=== PATIENT | male | born 1975 | race African-American/Black ===

== ENCOUNTER 2017-01-01 11:49 | Emergency (ER) | payer MEDICAID, OTHER ==
--- NOTE | 2017-01-01 12:41 | ER Document Report ---
ED Medical Screen (RME) - General Stated Complaint: RIGHT GROIN PAIN Notes: 41 yo male c/o right groin pain x 4-5 days. hx/o inguinal hernia repair in same area. pt admits to increased lifting and activity no difficulty urinating. no n/v TRAVEL OUTSIDE OF THE [place] IN LAST 30 DAYS: No - Related Data Allergies/Adverse Reactions: Bran [From Oat Bran] Allergy (Verified 01/01/17 12:34) dietary supplement [From Oat Bran] Allergy (Verified 01/01/17 12:34) No Known Drug Allergies Allergy (Verified 01/01/17 12:34) mayonaise Allergy (Uncoded 01/01/17 12:34) Past Medical History Musculoskeltal Medical History: Reports Hx Musculoskeletal Trauma Psychiatric Medical History: Reports: Hx Attention Deficit Hyperactivity Disorder, Hx Bipolar Disorder, Hx Schizophrenia Traumatic Medical History: Reports: Hx Fractures Past Surgical History: Reports: Hx Abdominal Surgery - hernia, Hx Inguinal Hernia, Hx Orthopedic Surgery - right ankle - Immunizations Immunizations up to date: Yes Hx Diphtheria, Pertussis, Tetanus Vaccination: Yes Physical Exam - Vital signs Vitals: Temp Pulse Resp BP Pulse Ox 97.8 F 80 18 113/77 99 01/01/17 12:13 01/01/17 12:13 01/01/17 12:13 01/01/17 12:13 01/01/17 12:13 Course - Vital Signs Vital signs: Temp Pulse Resp BP Pulse Ox 97.8 F 80 18 113/77 99 01/01/17 12:13 01/01/17 12:13 01/01/17 12:13 01/01/17 12:13 01/01/17 12:13
[2017-01-01] MEDS ORDERED: ACETAMINOPHEN 325 MG TABLET PO ONE (12:58)
[2017-01-01] MEDS ORDERED: ACETAMINOPHEN 325 MG TABLET ONE (13:12)
[2017-01-01 13:13] LABS: ABSOLUTE EOSINOPHILS # (AUTO) 0.1 10^3/uL (0.0-0.6); ABSOLUTE LYMPHOCYTES (AUTO) 1.8 10^3/uL (0.5-4.7); ABSOLUTE MONOCYTES (AUTO) 0.4 10^3/uL (0.1-1.4); ABSOLUTE NEUT (AUTO) 2.2 10^3/uL (1.7-8.2); EOSINOPHILS % (AUTO) 1.9 % (0-6); HEMATOCRIT 44.9 % (37.9-51.0); HEMOGLOBIN 15.3 g/dL (13.5-17.0); LYMPHOCYTES % (AUTO) 39.9 % (13-45); MEAN CORPUSCULAR HEMOGLOBIN 30.3 pg (27.0-33.4); MEAN CORPUSCULAR VOLUME 89 fl (80-97); MONOCYTES % (AUTO) 8.2 % (3-13); RED BLOOD COUNT 5.04 10^6/uL (4.35-5.55); RED CELL DISTRIBUTION WIDTH 13.3 % (11.5-14.0); WHITE BLOOD COUNT 4.5 10^3/uL (4.0-10.5)
[2017-01-01 13:18] LABS: APPEARANCE,URINE CLEAR; BILIRUBIN,URINE NEGATIVE (NEGATIVE); GLUCOSE, URINE NEGATIVE (NEGATIVE); KETONES,URINE NEGATIVE (NEGATIVE); LEUKOCYTE ESTERASE,URINE NEGATIVE (NEGATIVE); NITRITE,URINE NEGATIVE (NEGATIVE); PROTEIN,URINE NEGATIVE (NEGATIVE); URINE SPECIFIC GRAVITY 1.015; UROBILINOGEN,URINE NEGATIVE mg/dL (<2.0)
[2017-01-01 13:45] LABS: ALANINE AMINOTRANSFERASE 26 U/L (21-72); ALBUMIN 4.4 g/dL (3.5-5.0); ALKALINE PHOSPHATASE 112 U/L (38-126); ANION GAP 6 (5-19); ASPARTATE AMINO TRANSFERASE 20 U/L (17-59); BILIRUBIN,TOTAL 0.8 mg/dL (0.2-1.3); BLOOD UREA NITROGEN 13 mg/dL (7-20); CALCIUM 10.4 mg/dL (8.4-10.2); CARBON DIOXIDE 28 mmol/L (22-30); CHLORIDE 104 mmol/L (98-107); CREATININE RESULT 1.12 mg/dL (0.52-1.25); GLUCOSE 108 mg/dL (75-110); POTASSIUM 5.1 mmol/L (3.6-5.0); SODIUM 137.5 mmol/L (137-145); TOTAL PROTEIN 7.9 g/dL (6.3-8.2)
[2017-01-01] MEDS ORDERED: MORPHINE SULFATE 10 MG/ML INJ IV ONE (16:15)
--- NOTE | 2017-01-01 16:16 | ER Document Report ---
ED GI/ - General Chief Complaint: Groin Pain Stated Complaint: RIGHT GROIN PAIN Mode of Arrival: Ambulatory Information source: Patient Notes: Patient presents complaining of right groin pain for the past 4-5 days. Patient states he noticed swelling yesterday. Patient states that symptoms started after he was lifting up a sleeper sofa. Patient has a previous history of inguinal hernia and is concerned that he has a recurrence today. Patient denies any urinary symptoms, fever, nausea, or vomiting. Patient denies any additional abdominal pain. Patient denies any penile drainage or discharge. TRAVEL OUTSIDE OF THE [place] IN LAST 30 DAYS: No - HPI Patient complains to provider of: Groin pain Onset: Other - 4 days Timing/Duration: Worse Quality of pain: Sharp Pain Level: 4 Location: Pelvis Sexual history: Active Associated symptoms: denies: Dysuria, Erection problem, Fever, Nausea, Urinary hesitancy, Urinary frequency, Urinary retention, Urinary urgency, Vomiting Exacerbated by: Movement Relieved by: Denies Similar symptoms previously: Yes Recently seen / treated by doctor: No - Related Data Allergies/Adverse Reactions: Bran [From Oat Bran] Allergy (Verified 01/01/17 12:34) dietary supplement [From Oat Bran] Allergy (Verified 01/01/17 12:34) No Known Drug Allergies Allergy (Verified 01/01/17 12:34) mayonaise Allergy (Uncoded 01/01/17 12:34) Past Medical History - General Information source: Patient - Social History Smoking Status: Current Every Day Smoker Chew tobacco use (# tins/day): Yes Frequency of alcohol use: Occasional Drug Abuse: None Occupation: none Lives with: Spouse/Significant other Family History: Arthritis, CVA, DM, Hypertension Patient has suicidal ideation: No Patient has homicidal ideation: No Renal/ Medical History: Denies: Hx Peritoneal Dialysis Musculoskeltal Medical History: Reports Hx Musculoskeletal Trauma Psychiatric Medical History: Reports: Hx Schizophrenia Traumatic Medical History: Reports: Hx Fractures Past Surgical History: Reports: Hx Abdominal Surgery - hernia, Hx Inguinal Hernia, Hx Orthopedic Surgery - right ankle - Immunizations Immunizations up to date: Yes Hx Diphtheria, Pertussis, Tetanus Vaccination: Yes Review of Systems - Review of Systems Constitutional: No symptoms reported. denies: Fever, Recent illness EENT: No symptoms reported Cardiovascular: No symptoms reported. denies: Chest pain Respiratory: No symptoms reported. denies: Cough, Short of breath Gastrointestinal: Abdominal pain - Right inguinal pain. denies: Diarrhea, Nausea, Vomiting Genitourinary: No symptoms reported. denies: Dysuria, Flank pain Male Genitourinary: No symptoms reported. denies: Erectile dysfunction, Testicular pain, Penile discharge Musculoskeletal: No symptoms reported. denies: Back pain Skin: No symptoms reported Hematologic/Lymphatic: No symptoms reported Neurological/Psychological: No symptoms reported Physical Exam - Vital signs Vitals: Temp Pulse Resp BP Pulse Ox 97.8 F 80 18 113/77 99 01/01/17 12:13 01/01/17 12:13 01/01/17 12:13 01/01/17 12:13 01/01/17 12:13 - General General appearance: Appears well, Alert In distress: None - HEENT Head: Normocephalic Eyes: Normal Nasal: Normal Mouth/Lips: Normal Mucous membranes: Normal Neck: Normal, Supple. No: Lymphadenopathy - Respiratory Respiratory status: No respiratory distress Chest status: Nontender Breath sounds: Normal. No: Rales, Rhonchi, Stridor, Wheezing Chest palpation: Normal - Cardiovascular Rhythm: Regular Heart sounds: S1 appreciated, S2 appreciated Murmur: No - Abdominal Inspection: Normal Distension: No distension Bowel sounds: Normal Tenderness: Tender - Tenderness to right inguinal fold, no overt mass appreciated Organomegaly: No organomegaly - Genitourinary Tenderness: Nontender Scrotum: Normal - Back Back: Normal, Nontender. No: CVA tenderness - Extremities General upper extremity: Normal inspection, Normal strength General lower extremity: Normal inspection, Normal strength - Neurological Neuro grossly intact: Yes Cognition: Normal Adriana Coma Scale Eye Opening: Spontaneous Adriana Coma Scale Verbal: Oriented Adriana Coma Scale Motor: Obeys Commands Adriana Coma Scale Total: 15 - Psychological Associated symptoms: Normal affect, Normal mood - Skin Skin Temperature: Warm Skin Moisture: Dry Skin Color: Normal Course - Re-evaluation Re-evalutation: 01/01/17 16:16 Dr. Morales to bedside for examination and hernia reduction attempt. Recommends CT imaging to further evaluate area. 01/01/17 18:[address] Fine regarding patient CT report, days he can see a possible clip from patient's previous hernia repair but does not see any current mesh or hernia. Discussed results with patient. Patient encouraged to follow-up with a general surgeon for further evaluation. Discussed worsening signs or symptoms that patient should return immediately for. Patient verbalized understanding and agrees with plan of care. - Vital Signs Vital signs: Temp Pulse Resp BP Pulse Ox 97.4 F 65 18 131/96 H 98 01/01/17 18:53 01/01/17 18:53 01/01/17 12:13 01/01/17 18:53 01/01/17 18:53 - Laboratory Result Diagrams: 01/01/17 12:53 01/01/17 12:53 Laboratory results interpreted by me: 01/01/17 01/01/17 12:53 12:53 Potassium 5.1 H Calcium 10.4 H Urine Ascorbic Acid 40 H 01/01/17 18:35 Labs- Entire Visit 01/01/17 01/01/17 01/01/17 12:53 12:53 12:53 WBC 4.5 RBC 5.04 Hgb 15.3 Hct 44.9 MCV 89 MCH 30.3 MCHC 34.0 RDW 13.3 Plt Count 276 Seg Neutrophils % 49.0 Lymphocytes % 39.9 Monocytes % 8.2 Eosinophils % 1.9 Basophils % 1.0 Absolute Neutrophils 2.2 Absolute Lymphocytes 1.8 Absolute Monocytes 0.4 Absolute Eosinophils 0.1 Absolute Basophils 0.0 Sodium 137.5 Potassium 5.1 H Chloride 104 Carbon Dioxide 28 Anion Gap 6 BUN 13 Creatinine 1.12 Est GFR ( Amer) > 60 Est GFR (Non-Af Amer) > 60 Glucose 108 Calcium 10.4 H Total Bilirubin 0.8 Direct Bilirubin 0.0 AST 20 ALT 26 Alkaline Phosphatase 112 Total Protein 7.9 Albumin 4.4 Urine Color YELLOW Urine Appearance CLEAR Urine pH 5.0 Ur Specific [place] 1.015 Urine Protein NEGATIVE Urine Glucose (UA) NEGATIVE Urine Ketones NEGATIVE Urine Blood NEGATIVE Urine Nitrite NEGATIVE Urine Bilirubin NEGATIVE Urine Urobilinogen NEGATIVE Ur Leukocyte Esterase NEGATIVE Urine WBC (Auto) 0 Urine RBC (Auto) 0 Urine Ascorbic Acid 40 H 01/01/17 18:36 - Diagnostic Test Radiology reviewed: Reports reviewed Discharge - Discharge Clinical Impression: Right inguinal pain Condition: Stable Disposition: HOME, SELF-CARE Instructions: Abdominal Pain ([facility]), Anti-Inflammatory Medication ([facility]) Additional Instructions: Return immediately for any new or worsening symptoms Followup with your primary care provider, call tomorrow to make a followup appointment Follow up with a general surgeon for further evaluation of right inguinal pain. You do not currently have any evidence of a hernia at this time Prescriptions: Naproxen [Naprosyn 250 Nmg Tablet] 1 tab PO BID #14 tablet Referrals: GAMAL ESCOBAR MD [Primary Care Provider] - [facility] as [facility] - Follow up in 3-5 days
[2017-01-01 18:56] VITALS: BP 131/96
== END 2017-01-01 18:55 | disposition home or self-care (01) ==
LOC: ER 11:49
DX: R10.30 Lower abdominal pain, unspecified (principal); Z91.018 Allergy to other foods; Z87.19 Personal history of other diseases of the digestive system; Z98.890 Other specified postprocedural states
CPT/HCPCS: 99284; 96374; 36415; 85025; 80053; 81001; 74177; J3490; J2270

== ENCOUNTER 2017-02-14 08:48 | Emergency (ER) | payer MEDICAID ==
[2017-02-14] MEDS ORDERED: OXYCODONE-ACETAMINOPHEN 5-325 MG TABLET PO ONE (09:22)
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
[2017-02-14 10:32] VITALS: BP 132/83
== END 2017-02-14 10:30 | disposition home or self-care (01) ==
LOC: ER 08:48
DX: S02.651A Fracture of angle of right mandible, initial encounter for closed fracture (principal); S02.602A Fracture of unspecified part of body of left mandible, initial encounter for closed fracture; Y09 Assault by unspecified means; Y93.01 Activity, walking, marching and hiking; F17.210 Nicotine dependence, cigarettes, uncomplicated
CPT/HCPCS: 70486; 99283

== ENCOUNTER 2017-06-15 04:27 | Emergency (ER) | payer MEDICAID ==
[2017-06-15 05:00] LABS: APPEARANCE,URINE CLEAR; BILIRUBIN,URINE NEGATIVE (NEGATIVE); GLUCOSE, URINE NEGATIVE (NEGATIVE); KETONES,URINE NEGATIVE (NEGATIVE); LEUKOCYTE ESTERASE,URINE NEGATIVE (NEGATIVE); NITRITE,URINE NEGATIVE (NEGATIVE); PROTEIN,URINE NEGATIVE (NEGATIVE); URINE SPECIFIC GRAVITY 1.001; UROBILINOGEN,URINE NEGATIVE mg/dL (<2.0)
[2017-06-15 05:05] LABS: ABSOLUTE LYMPHOCYTES (AUTO) 1.6 10^3/uL (0.5-4.7); ABSOLUTE MONOCYTES (AUTO) 0.3 10^3/uL (0.1-1.4); ABSOLUTE NEUT (AUTO) 4.6 10^3/uL (1.7-8.2); BASOPHILS % (AUTO) 0.4 % (0-2); EOSINOPHILS % (AUTO) 0.4 % (0-6); HEMATOCRIT 41.8 % (37.9-51.0); HEMOGLOBIN 14.4 g/dL (13.5-17.0); HGB HCT DIFFERENCE 1.4; MEAN CORPUSCULAR HEMOGLOBIN 30.7 pg (27.0-33.4); MEAN CORPUSCULAR HGB CONC 34.5 g/dL (32.0-36.0); MEAN CORPUSCULAR VOLUME 89 fl (80-97); MONOCYTES % (AUTO) 4.6 % (3-13); RED BLOOD COUNT 4.69 10^6/uL (4.35-5.55); RED CELL DISTRIBUTION WIDTH 13.3 % (11.5-14.0); SEGMENTED NEUTROPHILS % (AUTO) 69.6 % (42-78); WHITE BLOOD COUNT 6.6 10^3/uL (4.0-10.5)
[2017-06-15 05:11] LABS: ALANINE AMINOTRANSFERASE 25 U/L (21-72); ALBUMIN 4.8 g/dL (3.5-5.0); ALCOHOL 139 mg/dL (NONE DETECTED); ALKALINE PHOSPHATASE 104 U/L (38-126); ANION GAP 15 (5-19); ASPARTATE AMINO TRANSFERASE 25 U/L (17-59); BILIRUBIN,DIRECT 0.4 mg/dL (0.0-0.4); BILIRUBIN,TOTAL 0.5 mg/dL (0.2-1.3); BLOOD UREA NITROGEN 12 mg/dL (7-20); CALCIUM 10.4 mg/dL (8.4-10.2); CARBON DIOXIDE 22 mmol/L (22-30); CHLORIDE 109 mmol/L (98-107); CREATININE RESULT 1.15 mg/dL (0.52-1.25); GLUCOSE 102 mg/dL (75-110); POTASSIUM 4.2 mmol/L (3.6-5.0); SODIUM 146.1 mmol/L (137-145); TOTAL PROTEIN 7.9 g/dL (6.3-8.2)
--- NOTE | 2017-06-15 05:12 | ER Document Report ---
ED Medical Screen (RME) - General Chief Complaint: Psych Problem Stated Complaint: PSYCH PROBLEM Time Seen by Provider: 06/15/17 05:11 Notes: 42 year old, comes by EMS, chief complaint of suicidal thoughts. Also smoked something from his friend and thinks there may have been cocaine in it. No current complaints. Has a history of anxiety and bipolar disorder. TRAVEL OUTSIDE OF THE [place] IN LAST 30 DAYS: No - Related Data Allergies/Adverse Reactions: Bran [From Oat Bran] Allergy (Verified 02/14/17 08:50) dietary supplement [From Oat Bran] Allergy (Verified 02/14/17 08:50) No Known Drug Allergies Allergy (Verified 02/14/17 08:50) mayonaise Allergy (Uncoded 02/14/17 08:50) Past Medical History Renal/ Medical History: Denies: Hx Peritoneal Dialysis Musculoskeltal Medical History: Reports Hx Musculoskeletal Trauma Psychiatric Medical History: Reports: Hx Attention Deficit Hyperactivity Disorder, Hx Bipolar Disorder, Hx Schizophrenia Traumatic Medical History: Reports: Hx Fractures Past Surgical History: Reports: Hx Abdominal Surgery - hernia, Hx Inguinal Hernia, Hx Orthopedic Surgery - right ankle - Immunizations Immunizations up to date: Yes Hx Diphtheria, Pertussis, Tetanus Vaccination: Yes Physical Exam - Cardiovascular Rhythm: Regular. No: Tachycardia Heart sounds: Normal auscultation, S1 appreciated, S2 appreciated - Psychological Associated symptoms: Normal affect, Normal mood Course - Re-evaluation Re-evalutation: patient calm, smiling, cooperative. No tachycardia. Well appearing. Pending workup - Laboratory Result Diagrams: 06/15/17 04:45 06/15/17 04:45
[2017-06-15 05:18] LABS: URINE BARBITURATES SCREEN NEGATIVE; URINE METHADONE SCREEN NEGATIVE; URINE OPIATES LOW NEGATIVE; URINE PHENCYCLIDINE SCREEN NEGATIVE
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
[2017-06-15] MEDS ORDERED: ZIPRASIDONE MESYLATE INJ/PF 20 MG SDV IM ONE (08:48)
[2017-06-15] MEDS ORDERED: LORAZEPAM INJ 2 MG/1 ML VIAL IM ONE (08:49)
--- NOTE | 2017-06-15 09:58 | ER Document Report ---
ED Psych Disorder / Suicide - General Information source: Patient, Parent - mother will be contacted, Relative - fiance will be contacted, [facility] Records TRAVEL OUTSIDE OF THE [place] IN LAST 30 DAYS: No - HPI Patient complains to provider of: Bizarre behavior, Suicidal ideation - pt Onset: Just prior to arrival Suicide Risk Factors: Male, Schizophrenia - Schizoaffective Bipolar Type; "severe learning disabilities", Substance abuse - alcohol and drugs Normal mood: No Associated symptoms: Anxious, Labile, Manic <DAYANA DELACRUZ - Last Filed: 06/16/17 11:14> <YENNIFER ADORNO - Last Filed: 06/16/17 11:37> - General Chief Complaint: Psych Problem Stated Complaint: PSYCH PROBLEM Time Seen by Provider: 06/15/17 05:11 - HPI Notes: Patient is a 42 year old male who presented via EMS with c/o suicidal ideations , anxiety, etc. Patient during discussion states multiple times he is good, and wants to go home. Patient denies any SI.HI. Patient states his called the ambulance because he was anxious. Patient denies any concerns or needs at this time. Note, during patient's evaluation with MD, he was tearful and stating he was depressed, most mornings struggles to get out of bed, etc. Dayana Nicholson states the patient was hanging out with people in the neighborhood, and he returned home around midnight stating he called 911 because he wanted to commit suicide. She states the Schizophrenia is common with the family, mother, etc. Lyn states the patient has been noncompliant with medications for 10 months, and is emotionally labile throughout the day/ daily. She states his ups and downs can become violent towards people and property. Lyn states his family, due to their mental health needs, are against her and them being together. She states he struggles over listening to his family, and staying with her. She states when he was on probation, his Officer encouraged her to petition for guardianship; however, she chose not to. She states he managed his schizophrenia well for about years, and has spent a total of 18 [place] correction [place] various [facility]. Hansramos states while he was on probation, he did well, but once that level of oversight discontinued he slowly discontinued his medication. She reports most recent medications prescribed were Zyprexa, Zoloft, and [place]. Lyn reports the patient does talk about suicide. Patient is A&O. Mood is manic/labile. Patient has denied and endorsed at various times suicidal ideations. Patient denies A/V H; paranoia was noted. Thought processes were tangential. Conversational speech was labile for prosody. Intellectual abilities were reported within disability range (per fiance). Attention and focus were poor. Insight, judgment, and impulse control were poor. Schizoaffective Disorder, Bipolar Type, per history Unspecified Cocaine Use Disorder Unspecified Alcohol Use Disorder Patient is recommended for IVC and is considered a danger to self and or others. Patient presents labile, with inconsistent stories in regards to suicidal ideations, etc. Patient is reportedly noncompliant with his medications, which per collateral information were once efficacious in managing his symptoms. I consulted with Dr. Jamison in regards to the care and management of this patient. 06/16/2017 Conducted check in with patient who is a 42 year old male under IVC at [facility]. Patient today is accompanied by his lyn, who is bedside. Patient states he is ready to go and "learned my lesson." Patient states the lesson learned was not to drink and do drugs. Patient states the medications provided helped him sleep. Patient states he would be willing to follow up outpatient. Patient denies suicidal/homicidal ideations. Dayana Nicholson, is bedside and reports she is comfortable with patient returning home. She states the patient was previously followed by A and will contact now to identify new provider. Lyn later states his information will be transferred and contacted by new provider within 1 week. Lyn states she is in agreement to monitor medications and provide doses as they are due. She states she does not think this episode would have occurred if the patient had not been drinking alcohol. Patient is A&O. Mood is anxious with congruent affect. Patient denies suicidal/ homicidal ideations. Patient denies A/V H; delusions not noted. Thought processes were guarded by organized. Conversational speech was pressured (note hansance states this is normal for patient). Intellectual abilities were reported to be in the learning disability range and therefor were not estimated. Attention and focus were poor. Insight, judgment, and impulse control were poor to fair. Schizoaffective Disorder, Bipolar Type, per history Unspecified Cocaine Use Disorder Unspecified Alcohol Use Disorder Patient is psychiatrically cleared for discharge. Patient is recommended for discharge to his fiance to follow up with a provider of their choice. Patient is encouraged to follow up with [facility] to engage in substance abuse assessment. Patient is recommended to discontinue use of drugs and alcohol and take his medications only as prescribed. Patient's fiance has agreed to manage medications in the home environment, and oversee patient taking the meds as well as following up. Patient denies suicidal/homicidal ideations and therefor no longer meets criteria for IVC per the [id number]. Fiance and patient are both in agreement with plan of care. I consulted with Dr. Jamison in regards to the care and management of this patient. (DAYANA DELACRUZ) - Related Data Allergies/Adverse Reactions: Bran [From Oat Bran] Allergy (Verified 02/14/17 08:50) dietary supplement [From Oat Bran] Allergy (Verified 02/14/17 08:50) No Known Drug Allergies Allergy (Verified 02/14/17 08:50) mayonaise Allergy (Uncoded 02/14/17 08:50) Past Medical History - General Information source: Patient, Relative - fiance - Social History Smoking Status: Current Every Day Smoker Cigarette use (# per day): Yes Chew tobacco use (# tins/day): No Smoking Education Provided: Yes Family History: Arthritis, CVA, DM, Hypertension Patient has suicidal ideation: No Patient has homicidal ideation: No Renal/ Medical History: Denies: Hx Peritoneal Dialysis Musculoskeltal Medical History: Reports Hx Musculoskeletal Trauma Psychiatric Medical History: Reports: Hx Attention Deficit Hyperactivity Disorder, Hx Bipolar Disorder, Hx Schizophrenia Traumatic Medical History: Reports: Hx Fractures Past Surgical History: Reports: Hx Abdominal Surgery - hernia, Hx Inguinal Hernia, Hx Orthopedic Surgery - right ankle - Immunizations Immunizations up to date: Yes Hx Diphtheria, Pertussis, Tetanus Vaccination: Yes <DAYANA DELACRUZ - Last Filed: 06/16/17 11:14> - Vital signs Vitals: Temp Pulse Resp BP Pulse Ox 98.4 F 85 17 108/86 H 97 06/15/17 04:27 06/15/17 04:27 06/15/17 04:27 06/15/17 04:27 06/15/17 04:27 Course - Laboratory Result Diagrams: 06/15/17 04:45 06/15/17 04:45 <DAYANA DELACRUZ - Last Filed: 06/16/17 11:14> - Laboratory Result Diagrams: 06/15/17 04:45 06/15/17 04:45 <YENNIFER ADORNO - Last Filed: 06/16/17 11:37> - Vital Signs Vital signs: Temp Pulse Resp BP Pulse Ox 98.5 F 58 L 18 112/80 100 06/16/17 07:27 06/16/17 07:27 06/16/17 07:27 06/16/17 07:27 06/16/17 07:27 - Laboratory Laboratory results interpreted by me: 06/15/17 04:45 Sodium 146.1 H Chloride 109 H Calcium 10.4 H Salicylates < 1.0 L Acetaminophen < 10 L Discharge <DYAANA DELACRUZ - Last Filed: 06/16/17 11:14> <YENNIFER ADORNO - Last Filed: 06/16/17 11:37> - Discharge Clinical Impression: Suicidal ideation, Cocaine abuse, Schizophrenia in partial remission with history of multiple episodes Condition: Stable Disposition: HOME, SELF-CARE Additional Instructions: Schizophrenia Schizophrenia is a chemical disorder that affects how the brain functions. The exact cause is unknown, but it tends to run in families. It is NOT caused by emotional trauma. Schizophrenia causes disordered thinking, including unusual beliefs and inability to "process" happenings around the patient. Patients with schizophrenia benefit greatly from medicine. These medicines are called antipsychotics. Never stop the medicine without the doctor 's approval. Counselling may help the patient deal with his disease. Schizophrenics require a very ordered environment. Stresses and sudden changes may bring out symptoms. Drugs and alcohol abuse may become problems. Contact the counsellor or crisis line if there are thoughts of suicide or of harming others, or if you become aware of unusual thoughts or beliefs Please take your medications as prescribed. Please do not use drugs or alcohol. Please follow up with a provider of your choice. Your fiance states [facility] will transfer your chart and you will be contacted with an appointment. Prescriptions: Benztropine Mesylate [Cogentin 1 mg Tablet] 1 mg PO DAILY #7 tablet Divalproex Sodium [Depakote] 500 mg PO BID #14 tablet.dr Matthews [Zyprexa 5 mg Tablet] 5 mg PO Q12 #14 tablet Referrals: [facility] [Provider Group] - Follow up in 3-5 days
[2017-06-15] MEDS ORDERED: NICOTINE 21 MG/24 HR PATCH.TD24 TD ONE (15:25)
[2017-06-15] MEDS: DIVALPROEX SODIUM 250 MG TAB.SR.24H PO SCH (19:36)
[2017-06-15] MEDS ORDERED: BENZTROPINE MESYLATE 1 MG TABLET PO ONE (20:00)
[2017-06-15] MEDS ORDERED: OLANZAPINE 5 MG TABLET PO ONE (20:00)
--- NOTE | 2017-06-15 21:55 | EKG REPORT ---
SEVERITY:- NORMAL ECG - SINUS RHYTHM : Confirmed by: Toshia Ball 15-Jun-2017 21:55:03
[2017-06-16] MEDS: DIVALPROEX SODIUM 250 MG TAB.SR.24H PO SCH (09:24)
--- NOTE | 2017-06-16 09:46 | ER Document Report ---
Doctor's Note Notes: 06/16/17 09:46 Patient evaluated this morning. Patient is resting comfortably in the bed with his significant other sitting by his side. Patient denies any current problems or concerns.
[2017-06-16] MEDS ORDERED: OLANZAPINE 5 MG TABLET PO ONE (11:34)
[2017-06-16] MEDS ORDERED: BENZTROPINE MESYLATE 1 MG TABLET PO ONE (11:35)
[2017-06-16 11:46] VITALS: BP 117/81
[2017-06-16] MEDS ORDERED: OLANZAPINE 5 MG TABLET PO SCH (18:00)
[2017-06-17] MEDS ORDERED: BENZTROPINE MESYLATE 1 MG TABLET PO SCH (10:00)
== END 2017-06-16 11:55 | disposition home or self-care (01) ==
LOC: ER 04:27
DX: R45.851 Suicidal ideations (principal); F14.10 Cocaine abuse, uncomplicated; F32.9 Major depressive disorder, single episode, unspecified; F20.9 Schizophrenia, unspecified; F17.200 Nicotine dependence, unspecified, uncomplicated
CPT/HCPCS: 93005; 99285; 36415; 80307 ×4; 85025; 80053; 81001; 93010; J3490 ×7; J2060; J3486

== ENCOUNTER 2017-06-24 12:20 | Emergency (ER) | payer MEDICAID ==
[2017-06-24] MEDS ORDERED: OXYCODONE-ACETAMINOPHEN 5-325 MG TABLET PO ONE (13:17)
[2017-06-24] MEDS ORDERED: PENICILLIN V POTASSIUM 500 MG TABLET PO ONE (13:17)
--- NOTE | 2017-06-24 13:20 | ER Document Report ---
HPI - HPI Patient complains to provider of: Dental pain Onset: Other - 1 month, Onset/Duration: Worse Quality of pain: Achy Pain Level: 4 Context: Patient presents with right lower jaw dental pain for the past month that worsened over the past 3 days. Patient denies any fever. Patient does report facial swelling that develops and improves each day but then returns. Associated Symptoms: Other - Dental pain Exacerbated by: Denies Relieved by: Denies Similar symptoms previously: Yes Recently seen / treated by doctor: Yes - ROS ROS below otherwise negative: Yes Systems Reviewed and Negative: Yes All other systems reviewed and negative - CONSTITUTIONAL Constitutional: DENIES: Fever, Chills - EENT EENT: REPORTS: Ear Pain Notes: Dental pain - CARDIOVASCULAR Cardiovascular: DENIES: Chest pain - RESPIRATORY Respiratory: DENIES: Coughing - GASTROINTESTINAL Gastrointestinal: DENIES: Nausea, Patient vomiting - REPRODUCTIVE Reproductive: DENIES: : - MUSCULOSKELETAL Musculoskeletal: DENIES: Back Pain, Neck Pain - DERM Skin Color: Normal Skin Problems: None Past Medical History - General Information source: Patient - Social History Smoking Status: Current Every Day Smoker Chew tobacco use (# tins/day): No Frequency of alcohol use: None Drug Abuse: None Occupation: none Lives with: Spouse/Significant other Family History: Arthritis, CVA, DM, Hypertension Patient has suicidal ideation: No Patient has homicidal ideation: No Renal/ Medical History: Denies: Hx Peritoneal Dialysis Musculoskeltal Medical History: Reports Hx Musculoskeletal Trauma Psychiatric Medical History: Reports: Hx Attention Deficit Hyperactivity Disorder, Hx Bipolar Disorder, Hx Depression, Hx Schizophrenia Traumatic Medical History: Reports: Hx Fractures Past Surgical History: Reports: Hx Abdominal Surgery - hernia, Hx Inguinal Hernia, Hx Orthopedic Surgery - right ankle - Immunizations Immunizations up to date: Yes Hx Diphtheria, Pertussis, Tetanus Vaccination: Yes Vertical Provider Document - CONSTITUTIONAL Agree With Documented VS: Yes Exam Limitations: No Limitations General Appearance: WD/WN, No Apparent Distress - INFECTION CONTROL TRAVEL OUTSIDE OF THE [place] IN LAST 30 DAYS: No - HEENT HEENT: Atraumatic, Normocephalic. negative: Pharyngeal Exudate, Pharyngeal Tenderness, Pharyngeal Erythema, Tympanic Membrane Red, Tympanic Membrane Bulging Mouth Diagram: 1 - Dental decay, tenderness, no gingival abscess, no trismus, no sublingual or submental swelling - NECK Neck: Lymphadenopathy-Right - RESPIRATORY Respiratory: Breath Sounds Normal, No Respiratory Distress O2 Sat by Pulse Oximetry: 97 - CARDIOVASCULAR Cardiovascular: Regular Rate, Regular Rhythm, No Murmur - MUSCULOSKELETAL/EXTREMETIES Musculoskeletal/Extremeties: MAEW - NEURO Level of Consciousness: Awake, Alert, Appropriate Motor/Sensory: No Motor Deficit - DERM Integumentary: Warm, Dry, No Rash Course - Re-evaluation Re-evalutation: 06/24/17 13:19 The patient has been informed that they may have pre-hypertension or hypertension based on a blood pressure reading in the emergency department. I recommend that patient call the primary care provider listed on their discharge instructions or a physician of their choice by this week to arrange follow-up for further evaluation of possible pre-hypertension or hypertension. - Vital Signs Vital signs: Temp Pulse Resp BP Pulse Ox 98.5 F 78 16 144/84 H 97 06/24/17 12:32 06/24/17 12:32 06/24/17 12:32 06/24/17 12:32 06/24/17 12:32 Discharge - Discharge Clinical Impression: Elevated blood pressure reading, Pain, dental Condition: Stable Disposition: HOME, SELF-CARE Instructions: Penicillin V K ([facility]), Toothache ([facility]), Ultraviolet Precaution ( [facility]) Additional Instructions: Return immediately for any new or worsening symptoms Followup with your primary care provider, call tomorrow to make a followup appointment Keep your appointment with your dentist as planned Prescriptions: Penicillin V Potassium [Penicillin Vk 500 mg Tablet] 500 mg PO BID #20 tablet Tramadol HCl [Ultram 50 mg Tablet] 50 mg PO ASDIR PRN #15 tablet PRN Reason: Referrals: [facility] [Provider Group] - Follow up as needed
[2017-06-24 13:43] VITALS: BP 136/84
== END 2017-06-24 13:41 | disposition home or self-care (01) ==
LOC: ER 12:20
DX: K08.9 Disorder of teeth and supporting structures, unspecified (principal); R03.0 Elevated blood-pressure reading, without diagnosis of hypertension; F17.200 Nicotine dependence, unspecified, uncomplicated
CPT/HCPCS: 99282; J3490

== ENCOUNTER 2017-07-29 11:23 | Emergency (ER) | payer MEDICAID ==
[2017-07-29] MEDS ORDERED: HYDROCODONE/ACETAMINOPHEN 5-325 MG TABLET PO ONE (14:37)
--- NOTE | 2017-07-29 14:40 | ER Document Report ---
ED General - General Chief Complaint: Abdominal Pain Stated Complaint: STOMACH PAIN Time Seen by Provider: 07/29/17 14:37 Notes: 42-year-old male presents emergency department complaining of a two-week history of epigastric abdominal pain associated with a knot that is tender to palpation but reduces when pushed on. Denies any difficulty with bowel movements but states he gets worse when he strains to poop. 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 States the pain radiates lower in his abdomen when he tries to bear down otherwise does not radiate. Denies any nausea, vomiting, diarrhea , fevers or chills. TRAVEL OUTSIDE OF THE [place] IN LAST 30 DAYS: No - HPI Severity: Moderate - Related Data Allergies/Adverse Reactions: Bran [From Oat Bran] Allergy (Verified 06/24/17 12:33) dietary supplement [From Oat Bran] Allergy (Verified 06/24/17 12:33) No Known Drug Allergies Allergy (Verified 07/29/17 11:35) mayonaise Allergy (Uncoded 06/24/17 12:33) Past Medical History - General Information source: Patient - Social History Smoking Status: Current Every Day Smoker Chew tobacco use (# tins/day): No Smoking Education Provided: Yes - 4 mins Frequency of alcohol use: Occasional Drug Abuse: Marijuana Lives with: Spouse/Significant other Family History: Arthritis, CVA, DM, Hypertension Renal/ Medical History: Denies: Hx Peritoneal Dialysis Musculoskeltal Medical History: Reports Hx Musculoskeletal Trauma Psychiatric Medical History: Reports: Hx Attention Deficit Hyperactivity Disorder, Hx Bipolar Disorder, Hx Depression, Hx Schizophrenia Traumatic Medical History: Reports: Hx Fractures Past Surgical History: Reports: Hx Abdominal Surgery - hernia, Hx Inguinal Hernia, Hx Orthopedic Surgery - right ankle - Immunizations Immunizations up to date: Yes Hx Diphtheria, Pertussis, Tetanus Vaccination: Yes Review of Systems - Review of Systems Constitutional: No symptoms reported Gastrointestinal: See HPI, Abdominal pain. denies: Diarrhea, Nausea, Constipation Genitourinary: No symptoms reported -: Yes All other systems reviewed and negative Physical Exam - Vital signs Vitals: Temp Pulse Resp BP Pulse Ox 98.2 F 75 16 122/80 100 07/29/17 11:34 07/29/17 11:34 07/29/17 11:34 07/29/17 11:34 07/29/17 11:34 Interpretation: Normal - General General appearance: Alert, Anxious - Mildly uncomfortable. - HEENT Head: Normocephalic, Atraumatic Eyes: Normal Pupils: PERRL - Respiratory Respiratory status: No respiratory distress. No: Cyanosis, Retractions - Cardiovascular Normal capillary refill: Yes - Abdominal Inspection: Normal Notes: Hernia approximately 3 cm above the umbilicus, in the midline, easily reducible , approximately 2 fingerbreadths wide, no evidence of incarceration or strangulation. Abdomen otherwise nontender to palpation. Normal bowel sounds. - Neurological Neuro grossly intact: Yes Cognition: Normal Orientation: AAOx4 - Skin Skin Temperature: Warm Skin Moisture: Dry Skin Color: Normal Course - Re-evaluation Re-evalutation: 07/29/17 16:39 Acute abdominal series does not show any signs of obstruction, physical examination does not suggest incarceration or strangulation, discussed with patient that I do expect his hernia to continue to be painful however we have given him an abdominal binder to relieve some of the pressure on his stomach and to help to keep the hernia reduced, he was counseled regarding return precautions including return should his pain worsen, develop uncontrollable vomiting, be unable to reduce the hernia or any new or concerning symptoms. Patient is agreeable to this plan and will follow with surgery as an outpatient. Recommended use stool softeners and avoid heavy lifting. - Vital Signs Vital signs: Temp Pulse Resp BP Pulse Ox 98.2 F 75 16 122/80 100 07/29/17 11:34 07/29/17 11:34 07/29/17 11:34 07/29/17 11:34 07/29/17 11:34 Discharge - Discharge Clinical Impression: Tobacco abuse, Tobacco abuse counseling Abdominal hernia without obstruction and without gangrene Qualifiers: Hernia type: ventral Qualified Code(s): K43.9 - Ventral hernia without obstruction or gangrene Condition: Stable Disposition: HOME, SELF-CARE Additional Instructions: Hernia You have a hernia. A hernia forms at a weak spot in the abdominal wall. Bowel slips out of the abdominal cavity into the weak spot. Hernias tend to occur in the groin (especially in males), the fold of the thigh, the naval, or at a surgical scar. Surgical repair of the defect is usually necessary. The problem tends to get worse. It's important that you follow up as recommended. For now, you should avoid straining, heavy lifting, and vigorous exercise. Complications occur if the hernia becomes tightly stuck. You should come back immediately if the area becomes increasingly painful, swollen, or discolored, or if you develop abdominal pain and vomiting. Please dissolve 1 scoop of MiraLAX in a glass of water once a day to treat constipation. You may increase to twice a day if needed to create soft bowel movements and you may decrease to every other day if you develop diarrhea. Forms: Smoking Cessation Education Referrals: [facility] [Provider Group] - Follow up as needed
--- NOTE | 2017-07-29 16:21 | RADIOLOGY REPORT (SQ) ---
EXAM DESCRIPTION: ABDOMEN 2 VIEWS COMPLETED DATE/TIME: 07/29/2017 4:10 pm REASON FOR STUDY: abd pain, hernia, r/o obstruction COMPARISON: None. NUMBER OF VIEWS: Two views. TECHNIQUE: Supine and erect/decubitus radiographic images of the abdomen acquired. LIMITATIONS: None. FINDINGS: FREE AIR: None. No abnormal gas collections. LUNG BASES: Clear. BOWEL GAS PATTERN: Nonobstructive pattern. No dilated loops or air fluid levels. CALCIFICATIONS: No suspicious calcifications. SOFT TISSUES: No gross mass or suggestion of organomegaly. HARDWARE: None in the abdomen. BONES: No acute fracture. No worrisome bone lesions. OTHER: No other significant finding. IMPRESSION: NO RADIOGRAPHIC EVIDENCE FOR ACUTE ABDOMINAL DISEASE. TECHNICAL DOCUMENTATION: JOB ID: [id number] [employer]- All Rights Reserved
[2017-07-29 16:46] VITALS: BP 148/92
== END 2017-07-29 16:46 | disposition home or self-care (01) ==
LOC: ER 11:23
DX: K43.9 Ventral hernia without obstruction or gangrene (principal); R10.9 Unspecified abdominal pain; R10.13 Epigastric pain; F17.200 Nicotine dependence, unspecified, uncomplicated
CPT/HCPCS: 74020; 99284; 99406

== ENCOUNTER 2017-09-03 14:37 | Day surgery (SDC) | payer MEDICAID ==
[~2017-09-03 14:37] MED LIST: BUPIVACAINE HCL 0.25 % INJ/PF (2.5 MG/1 ML) 30 ML VIAL ONE; BUPIVACAINE INJ/PF LIPOSOME/PF 266 MG/20 ML SDV ONE; CEFAZOLIN 1 GM/D5W RTU 1 GM/50 ML RTUPB IV PRN; DEXTROSE 5%-LACTATED RINGERS 1,000 ML IV PRN; SUCCINYLCHOLINE CHLORIDE INJ 200 MG/10 ML VIAL ONE
[2017-09-03] MEDS ORDERED: DEXAMETHASONE SOD PHOSPHATE INJ 4 MG/1 ML VIAL ONE (15:02)
[2017-09-03] MEDS ORDERED: FENTANYL CITRATE INJ/PF 100 MCG/2 ML AMPUL ONE (15:02)
[2017-09-03] MEDS ORDERED: MIDAZOLAM 2 MG/2 ML INJ ONE (15:02)
[2017-09-03] MEDS ORDERED: ONDANSETRON HCL INJ/PF 4 MG/2 ML SDV ONE (15:03)
[2017-09-03] MEDS ORDERED: MORPHINE SULFATE 10 MG/ML INJ ONE (15:03)
[2017-09-03] MEDS ORDERED: IBUPROFEN INJ 800 MG/8 ML VIAL IV ONE (15:03)
[2017-09-03] MEDS ORDERED: PROPOFOL INJ 200 MG/20 ML VIAL IV ONE (15:03)
[2017-09-03 15:12] LABS: HEMATOCRIT 42.3 % (37.9-51.0); HEMOGLOBIN 14.5 g/dL (13.5-17.0); HGB HCT DIFFERENCE 1.2; MEAN CORPUSCULAR HEMOGLOBIN 30.2 pg (27.0-33.4); MEAN CORPUSCULAR HGB CONC 34.3 g/dL (32.0-36.0); MEAN CORPUSCULAR VOLUME 88 fl (80-97); RED BLOOD COUNT 4.81 10^6/uL (4.35-5.55); RED CELL DISTRIBUTION WIDTH 13.6 % (11.5-14.0); WHITE BLOOD COUNT 5.1 10^3/uL (4.0-10.5)
[2017-09-03] MEDS ORDERED: PROMETHAZINE HCL INJ 25 MG/1 ML VIAL IV PRN ×2 (15:36)
[2017-09-03] MEDS ORDERED: DIPHENHYDRAMINE HCL 50 MG/ML VIAL IV PRN (15:36)
[2017-09-03] MEDS ORDERED: MEPERIDINE HCL/PF INJ 25 MG/1 ML DISP.SYRIN IV PRN (15:36)
[2017-09-03] MEDS ORDERED: MORPHINE SULFATE 10 MG/ML INJ IV PRN (15:36)
[2017-09-03] MEDS ORDERED: OXYCODONE-ACETAMINOPHEN 5-325 MG TABLET PO PRN ×3 (15:36→16:20)
[2017-09-03] MEDS ORDERED: FENTANYL CITRATE INJ/PF 100 MCG/2 ML AMPUL IV PRN ×3 (15:36)
--- NOTE | 2017-09-03 16:19 | Operative Report ---
Operative Report DATE OF SURGERY: 09/03/17 PREOPERATIVE DIAGNOSIS: Supraumbilical ventral hernia POSTOPERATIVE DIAGNOSIS: Same OPERATION: Ventral wall repair using 4.6 cm Covidien mesh retro-rectus position SURGEON: EMANUEL BROWN 1ST HOTBED OPERATOR: CHRISTINE ROSENBAUM ANESTHESIA: GA TISSUE REMOVED OR ALTERED: None COMPLICATIONS: None ESTIMATED BLOOD LOSS: Scant INTRAOPERATIVE FINDINGS: See below PROCEDURE: Patient was taken to the preop holding her to the main operating room where general anesthesia was induced. Abdomen was exposed, hair clipped, and the abdominal wall anteriorly was prepped and draped sterile fashion. Surgical plan surgical timeout were conducted The skin was anesthetized above the umbilicus percent Marcaine, 20 cc. The stump preoperative thinning, and physical examination, need a supraumbilical incision, vertically oriented, approximately 4-1/2-5 cm in length of the umbilicus. Cutaneous tissue was divided, and the small was encountered with prolapsing retroperitoneal fat through the fascial defect was approximately 1/2 cm in diameter. We opened up the fascial defect of approximately 2-1/2 cm in diameter and inspected the fascia the retroperitoneal side by mechanically reducing the peritoneal fat off of the rectus sheath. At this point we decided to bring onto the field a Covidien circular 4.6 cm polypropylene mesh. It was deployed into the retrorectus position, and its leaves at the 2, 4,8 and 10:00 positions were used X the mesh to the anterior abdominal wall through and through 0 PDS sutures through the intact fascia to the left and right of midline. This now permitted the attic to lay in the retro-rectus position. Now closed the anterior fascia over the mesh with 2 interrupted [id number] 0 PDS sutures. The remainder the wound was closed with 3-0 Vicryl benzoin and Steri-Strips. Exparel placed in the subcutaneous perimeter of the wound. Pt.Tolerated the procedure well, extubated, taken to recovery room stable condition.The physician technical support assistant, Ms. Vazquez, provided assistance during this case by: Assisting, retracting tissue, instillation of local anesthesia and closure of skin incisions.
[2017-09-03] MEDS ORDERED: ONDANSETRON HCL INJ/PF 4 MG/2 ML SDV IV PRN (16:20)
--- NOTE | 2017-09-03 16:20 | PDOC DISCHARGE SUMMARY ---
Discharge Summary (SDC) - Discharge Final Diagnosis: ventral wall hernia Date of Surgery: 09/03/17 Discharge Date: 09/03/17 Condition: Stable Treatment or Instructions: [facility] [address], [place] [address] Discharge Instructions: Open Abdominal Procedures (Hernia, Bowel Surgery) 1.General Information: a. DO NOT DRIVE a car or operative machinery for 3-4 days. b. DO NOT consume alcohol, tranquilizers, sleeping medication, or any non- prescribed medication for 24 hours unless approved by your doctor or as long as taking pain medication. c. DO NOT make important decisions or sign any important papers for the first 24 hours after surgery. d. When discharged home the same day as surgery have a responsible person with you the first night. 2.Activity Restriction:8 weeks; a. Avoid heavy lifting (> 10-15 lbs), straining abdominal muscles and sports, mowing lawn, vacuum strainer cleaner and bending over a lot. b. Walking is important to avoid blood clots in the legs and deep breathing can prevent pneumonia. c. If it fine to go for walks, up and down steps, and ride in a car. 3.Treatment: a. You may remove dressing or Band-Aids the day after surgery and shower then daily is fine, but you should not bathe in a tub or go swimming for 2 weeks. b. If you have paper strips (steri strips) on the skin, do not remove them as they will fall off in the coming weeks. Pat them dry after your shower. Sutures beneath the paper strips dissolve. If you have skin sutures or metal kathy they will be removed on your follow up visit. They may also get wet with a shower. c. Do not use oils, powders, or lotion on your incision. 4.Medications: a. You may take prescription tablets for pain if needed, one every 6 hours ( Toradol). b. Stop the narcotic when able since you cannot take it and drive and they cause constipation. You may switch to plain Tylenol, Advil, or Aleve as you transition from the narcotic. Many adults find good pain relief with Advil 600-800 mg three times a day with meal to work well and avoid narcotic use. High dose Advil should only be used for short courses since it can cause indigestion, ulcer bleeding in the stomach and kidney problems. c. You may resume all normal medications unless a change is specified by your doctors. 5.Diet: a. If going home the same day as surgery start with clear liquids, and if you do well then advance to normal foods low inf fat and protein. Smaller portion size may be butts the first night. b. When discharged after hospital stay you may resume a normal diet. 6.Notify Physician If: a. Pain is not relieved by pain medication b. Persistent nausea and vomiting c. Chills, fever (above 101) d. Persistent bleeding or swelling at the operative site e. Unable to urinate for 6-8 hours f. Increased redness, drainage, or foul smelling discharge from incision 7. Follow Up Care: a. Please call our office to schedule an appointment with your doctor for 2 weeks. In the event of any postoperative problems or questions you may call our office during business hours or the On-Call surgeon through the gray mixing operator at [facility]. [facility] [phone] [facility] [phone] (Ask for the surgeon ventilation worker) b. I understand the instructions for my postoperative care as described above and a copy has been given to me. _ Witness Patient/Significant Other Date Prescriptions: Ketorolac Tromethamine [Toradol 10 mg Tablet] 10 mg PO Q6HP PRN #20 tablet PRN Reason: Discharge Diet: As Tolerated Discharge Activity: No Lifting Over 10 Pounds, No Lifting/Push/Pulling Report the Following to Your Physician Immediately: Nausea, Vomiting, Fever over 101 Degrees, Drainage-Foul Smelling
[2017-09-03] MEDS ORDERED: OXYCODONE-ACETAMINOPHEN 5-325 MG TABLET ONE (17:02)
[2017-09-03 18:45] VITALS: BP 111/74
== END 2017-09-03 18:25 | disposition home or self-care (01) ==
LOC: OROUT 14:37
PROVIDERS: ATTEND Surgery
PROC: 0WUF0JZ Supplement Abdominal Wall with Synthetic Substitute, Open Approach (ICD-10-PCS; principal; 2017-09-03 16:30)
DX: K43.9 Ventral hernia without obstruction or gangrene (principal); F17.210 Nicotine dependence, cigarettes, uncomplicated
CPT/HCPCS: 36415; 85027; 49560; 49568; C1781; J2250; J0690; J1100; J3010; J2270; J0330; J2405; S0020; J2704; C9290; J1741; 752

== ENCOUNTER 2017-11-10 02:52 | Emergency (ER) | payer MEDICAID ==
[2017-11-10] MEDS ORDERED: HALOPERIDOL 5 MG TABLET PO ONE (03:00)
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
[2017-11-10 05:57] VITALS: BP 112/85
--- NOTE | 2017-11-10 08:46 | EKG REPORT ---
SEVERITY:- NORMAL ECG - SINUS RHYTHM : Confirmed by: Toshia Ball 10-Nov-2017 08:45:52
== END 2017-11-10 06:01 | disposition home or self-care (01) ==
LOC: ER 02:52
DX: F41.9 Anxiety disorder, unspecified (principal); F10.120 Alcohol abuse with intoxication, uncomplicated; F31.9 Bipolar disorder, unspecified; Z79.899 Other long term (current) drug therapy; R07.89 Other chest pain; Z91.018 Allergy to other foods; F17.200 Nicotine dependence, unspecified, uncomplicated
CPT/HCPCS: 93005; 99284; 93010; J3490

== ENCOUNTER 2018-05-14 06:17 | Emergency (ER) | payer MEDICAID, OTHER ==
--- NOTE | 2018-05-14 07:06 | ER Document Report ---
ED Psych Disorder / Suicide - General Chief Complaint: Psych Problem Stated Complaint: SUICIDIAL IDEATION Time Seen by Provider: 05/14/18 06:23 Notes: This is a 43-year-old male. To the emergency department for evaluation of suicidal ideation. Patient states that he has history of bipolar. He used to be on lithium but does not take it anymore. Does admit to having some family issues. Gets in fights with his mother. Admits to having a cocaine problem recently. States that he thinks he needs to be admitted to the hospital for at least 72 hours for him to get everything straight. Denies any thoughts of harm of other people. No auditory or visual hallucinations. Does state that he thought about killing himself with a razor blade. Denies any other major symptoms at this time. TRAVEL OUTSIDE OF THE [place] IN LAST 30 DAYS: No - HPI Patient complains to provider of: Suicidal ideation - Related Data Allergies/Adverse Reactions: Bran [From Oat Bran] Allergy (Verified 09/03/17 15:09) dietary supplement [From Oat Bran] Allergy (Verified 09/03/17 15:09) No Known Drug Allergies Allergy (Verified 09/03/17 15:09) mayonaise Allergy (Uncoded 09/03/17 15:09) Past Medical History - General Information source: Patient - Social History Smoking Status: Current Every Day Smoker Cigarette use (# per day): Yes Chew tobacco use (# tins/day): No Frequency of alcohol use: Occasional Drug Abuse: None Lives with: Parents Family History: Arthritis, CVA, DM, Hypertension Patient has suicidal ideation: Yes Patient has homicidal ideation: Yes - Past Medical History Cardiac Medical History: Denies: Hx Coronary Artery Disease, Hx Heart Attack, Hx Hypertension Pulmonary Medical History: Denies: Hx Asthma, Hx Bronchitis, Hx COPD, Hx Pneumonia Neurological Medical History: Denies: Hx Cerebrovascular Accident, Hx Seizures Renal/ Medical History: Denies: Hx Peritoneal Dialysis Musculoskeletal Medical History: Denies Hx Arthritis, Reports Hx Musculoskeletal Trauma Psychiatric Medical History: Reports: Hx Attention Deficit Hyperactivity Disorder, Hx Bipolar Disorder, Hx Depression, Hx Schizophrenia Traumatic Medical History: Reports: Hx Fractures Past Surgical History: Reports: Hx Abdominal Surgery - hernia, Hx Inguinal Hernia, Hx Orthopedic Surgery - right ankle - Immunizations Immunizations up to date: Yes Hx Diphtheria, Pertussis, Tetanus Vaccination: Yes Review of Systems - Review of Systems Constitutional: denies: Fever, Malaise, Weakness EENT: denies: Blurred vision, Difficulty swallowing, Throat swelling Cardiovascular: denies: Chest pain, Palpitations, Heart racing Respiratory: denies: Hurts to breathe, Short of breath, Wheezing Gastrointestinal: denies: Abdominal pain, Diarrhea, Nausea Genitourinary: denies: Burning, Dysuria, Discharge Musculoskeletal: denies: Back pain, Joint pain, Joint swelling, Muscle pain, Muscle stiffness, Neck pain Skin: denies: Dryness, Lesions, Lumps, Rash Hematologic/Lymphatic: denies: Anemia, Easy bleeding, Swollen glands Neurological/Psychological: Anxiety, Suicidal ideation, Other - Denies homicidal ideation.. denies: Confusion, Dementia, Depression, Hallucinations, Sensory change Physical Exam - Vital signs Vitals: Temp Pulse Resp BP Pulse Ox 97.7 F 79 16 131/80 H 100 05/14/18 06:34 05/14/18 06:34 05/14/18 06:34 05/14/18 06:34 05/14/18 06:34 Interpretation: Normal - General General appearance: Appears well, Alert - HEENT Head: Normocephalic, Atraumatic Eyes: Normal Pupils: PERRL - Respiratory Respiratory status: No respiratory distress Chest status: Nontender Breath sounds: Normal Chest palpation: Normal - Cardiovascular Rhythm: Regular Heart sounds: Normal auscultation Murmur: No - Abdominal Inspection: Normal Distension: No distension Bowel sounds: Normal Tenderness: Nontender Organomegaly: No organomegaly - Back Back: Normal, Nontender - Extremities General upper extremity: Normal inspection, Nontender, Normal color, Normal ROM , Normal temperature General lower extremity: Normal inspection, Nontender, Normal color, Normal ROM , Normal temperature, Normal weight bearing. No: Jose's sign - Neurological Neuro grossly intact: Yes Cognition: Normal Orientation: AAOx4 [place] Coma Scale Eye Opening: Spontaneous Adriana Coma Scale Verbal: Oriented [place] Coma Scale Motor: Obeys Commands [place] Coma Scale Total: 15 Speech: Normal Motor strength normal: LUE, RUE, LLE, RLE Sensory: Normal - Psychological Associated symptoms: Normal affect, Normal mood - Skin Skin Temperature: Warm Skin Moisture: Dry Skin Color: Normal Course - Re-evaluation Re-evalutation: 05/14/18 07:17 At this time patient admits to having some suicidal ideation and substance abuse. At this time will ask mental health see patient. Patient is requesting admission for inpatient psychiatric. Uncertain whether or not this is warranted at this time. Will defer to mental health team at this time for further evaluation and treatment 05/14/18 14:23 clear at this time for mental health evaluation. Awaiting input from mental health at this time. - Vital Signs Vital signs: Temp Pulse Resp BP Pulse Ox 97.5 F 68 16 137/87 H 100 05/14/18 10:15 05/14/18 10:15 05/14/18 10:15 05/14/18 10:15 05/14/18 10:15 - Laboratory Result Diagrams: 05/14/18 07:08 05/14/18 07:08 Laboratory results interpreted by me: 05/14/18 07:08 Salicylates < 1.0 L Acetaminophen < 10 L Discharge - Discharge Clinical Impression: Cocaine abuse, Suicidal ideation Condition: Good
[2018-05-14 07:49] LABS: APPEARANCE,URINE CLEAR; BILIRUBIN,URINE NEGATIVE (NEGATIVE); COLOR,URINE STRAW; GLUCOSE, URINE NEGATIVE (NEGATIVE); KETONES,URINE NEGATIVE (NEGATIVE); LEUKOCYTE ESTERASE,URINE NEGATIVE (NEGATIVE); NITRITE,URINE NEGATIVE (NEGATIVE); PROTEIN,URINE NEGATIVE (NEGATIVE); URINE SPECIFIC GRAVITY 1.002; UROBILINOGEN,URINE NEGATIVE mg/dL (<2.0)
--- NOTE | 2018-05-14 07:50 | EKG REPORT ---
SEVERITY:- NORMAL ECG - SINUS RHYTHM ST ELEV, PROBABLE NORMAL EARLY REPOL PATTERN : Confirmed by: Amee Ybarra MD 14-May-2018 07:49:55
[2018-05-14 07:54] LABS: ABSOLUTE LYMPHOCYTES (AUTO) 1.8 10^3/uL (0.5-4.7); ABSOLUTE MONOCYTES (AUTO) 0.4 10^3/uL (0.1-1.4); ABSOLUTE NEUT (AUTO) 4.7 10^3/uL (1.7-8.2); BASOPHILS % (AUTO) 0.6 % (0-2); EOSINOPHILS % (AUTO) 0.7 % (0-6); HEMATOCRIT 41.4 % (37.9-51.0); HEMOGLOBIN 14.1 g/dL (13.5-17.0); LYMPHOCYTES % (AUTO) 25.8 % (13-45); MEAN CORPUSCULAR HEMOGLOBIN 30.8 pg (27.0-33.4); MEAN CORPUSCULAR VOLUME 91 fl (80-97); MONOCYTES % (AUTO) 5.4 % (3-13); PLATELET COUNT 270 10^3/uL (150-450); RED BLOOD COUNT 4.58 10^6/uL (4.35-5.55); RED CELL DISTRIBUTION WIDTH 13.7 % (11.5-14.0); SEGMENTED NEUTROPHILS % (AUTO) 67.5 % (42-78); TOTAL CELLS COUNTED % (AUTO) 100 %; WHITE BLOOD COUNT 6.9 10^3/uL (4.0-10.5)
[2018-05-14 08:07] LABS: ALANINE AMINOTRANSFERASE 23 U/L (21-72); ALBUMIN 4.3 g/dL (3.5-5.0); ALCOHOL 24 mg/dL (NONE DETECTED); ALKALINE PHOSPHATASE 78 U/L (38-126); ANION GAP 13 (5-19); ASPARTATE AMINO TRANSFERASE 26 U/L (17-59); BILIRUBIN,DIRECT 0.3 mg/dL (0.0-0.4); BILIRUBIN,TOTAL 0.5 mg/dL (0.2-1.3); BLOOD UREA NITROGEN 8 mg/dL (7-20); CALCIUM 9.9 mg/dL (8.4-10.2); CARBON DIOXIDE 23 mmol/L (22-30); CHLORIDE 107 mmol/L (98-107); GLUCOSE 91 mg/dL (75-110); POTASSIUM 3.8 mmol/L (3.6-5.0); SODIUM 142.5 mmol/L (137-145); TOTAL PROTEIN 7.5 g/dL (6.3-8.2)
[2018-05-14 08:10] LABS: URINE AMPHETAMINES SCREEN NEGATIVE; URINE BARBITURATES SCREEN NEGATIVE; URINE BENZODIAZEPINES SCREEN NEGATIVE; URINE COCAINE SCREEN UNCONFIRMED POSITIVE; URINE MARIJUANA (THC) SCREEN NEGATIVE; URINE METHADONE SCREEN NEGATIVE; URINE PHENCYCLIDINE SCREEN NEGATIVE
[2018-05-14 08:11] LABS: ACETAMINOPHEN < 10 ug/mL (10-30); SALICYLATE < 1.0 mg/dL (2.0-20.0)
--- NOTE | 2018-05-14 18:30 | ER Document Report ---
Doctor's Note Notes: 05/14/18 18:29 Patient is a 43-year-old male with past medical history as recorded who is presenting for some suicidal ideations and some admitted cocaine abuse. Labs as recorded. Cocaine positive. Psychology team is seen and evaluated the patient. They have spoken to the patient as well as the patient's mother. I have spoken to both of them as well. Patient has been off his lithium for greater than 1 year. He denies any auditory or visual hallucinations. The patient's mom is very comfortable with the patient going home. The psychology team would like the patient to be off cocaine for limited period of time before restarting any medications. They will also have the patient follow-up with [facility]. The patient and mom are very comfortable with this plan. She is comfortable with the patient going home into her care.
[2018-05-14 18:54] VITALS: BP 135/80
== END 2018-05-14 18:53 | disposition home or self-care (01) ==
LOC: ER 06:17
DX: R45.851 Suicidal ideations (principal); F14.10 Cocaine abuse, uncomplicated; F17.210 Nicotine dependence, cigarettes, uncomplicated
CPT/HCPCS: 36415; 80053; 80307; 81001; 85025; 93005; 93010; 99285

== ENCOUNTER 2018-06-27 03:47 | Emergency (ER) | payer MEDICAID ==
[2018-06-27 03:59] VITALS: BP 122/102
== END 2018-06-27 04:02 | disposition left against medical advice (07) ==
LOC: ER 03:47
DX: Z53.21 Procedure and treatment not carried out due to patient leaving prior to being seen by health care provider (principal)

== ENCOUNTER 2018-06-27 04:27 | Emergency (ER) | payer MEDICAID ==
[2018-06-27 04:35] VITALS: BP 122/98
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
== END 2018-06-27 05:41 | disposition home or self-care (01) ==
LOC: ER 04:27
DX: S01.411A Laceration without foreign body of right cheek and temporomandibular area, initial encounter (principal); Y04.2XXA Assault by strike against or bumped into by another person, initial encounter; Y93.89 Activity, other specified; Z91.018 Allergy to other foods
CPT/HCPCS: 99284

== ENCOUNTER 2019-09-11 15:34 | Emergency (ER) | payer MEDICAID ==
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
[2019-09-11 15:51] VITALS: BP 120/89
[2019-09-11] MEDS ORDERED: MUPIROCIN 2% OINTMENT 22 GM TP ONE (15:55)
[2019-09-11] MEDS ORDERED: HYDROCODONE/ACETAMINOPHEN 5-325 MG (6 TAB/ER DISP) PO PRN (15:55)
== END 2019-09-11 16:14 | disposition home or self-care (01) ==
LOC: ER 15:34
DX: S51.032D Puncture wound without foreign body of left elbow, subsequent encounter (principal); W34.00XD Accidental discharge from unspecified firearms or gun, subsequent encounter; F17.210 Nicotine dependence, cigarettes, uncomplicated
CPT/HCPCS: 99284; J3490

== ENCOUNTER 2020-01-14 11:24 | Emergency (ER) | payer MEDICAID ==
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
--- NOTE | 2020-01-14 14:31 | ER Document Report ---
Entered by SIDNEY VARGAS SCRIBE 01/14/20 1243 Acting as scribe for:DALTON TROY MD ED General - General Mode of Arrival: Ambulatory Information source: Patient TRAVEL OUTSIDE OF THE [place] IN LAST 30 DAYS: No - General Chief Complaint: Psych Problem Stated Complaint: PSYCH EVAL Time Seen by Provider: 01/14/20 11:31 Primary Care Provider: [facility] [Outside] - Follow up as needed Notes: This 44 year old male patient presents to the emergency department today with wanting to hurt himself, but does not have any plans. Patient states he was living with his brother and was recently kicked out. Patient states he has a history of bipolar disorder but stopped taking his medications x2 months ago due to not having transportation. Patient states he has not taken drugs recently. (DALTON TROY) - Related Data Allergies/Adverse Reactions: Bran [From Oat Bran] Allergy (Verified 09/03/17 15:09) dietary supplement [From Oat Bran] Allergy (Verified 09/03/17 15:09) No Known Drug Allergies Allergy (Verified 09/03/17 15:09) mayonaise Allergy (Uncoded 09/03/17 15:09) Past Medical History - General Information source: Patient - Social History Smoking Status: Current Every Day Smoker Cigarette use (# per day): Yes Chew tobacco use (# tins/day): No Frequency of alcohol use: Social Drug Abuse: Cocaine, Marijuana Family History: Arthritis, CVA, DM, Hypertension Patient has suicidal ideation: No Patient has homicidal ideation: No Musculoskeletal Medical History: Reports Hx Musculoskeletal Trauma Psychiatric Medical History: Reports: Hx Attention Deficit Hyperactivity Disorder, Hx Bipolar Disorder, Hx Depression, Hx Schizophrenia Traumatic Medical History: Reports: Hx Fractures Past Surgical History: Reports: Hx Abdominal Surgery - hernia, Hx Inguinal Hernia, Hx Orthopedic Surgery - right ankle, Hx Umbilical Hernia - Immunizations Immunizations up to date: Yes Hx Diphtheria, Pertussis, Tetanus Vaccination: Yes Review of Systems - Review of Systems Constitutional: No symptoms reported EENT: No symptoms reported Cardiovascular: No symptoms reported Respiratory: No symptoms reported Gastrointestinal: No symptoms reported Genitourinary: No symptoms reported Male Genitourinary: No symptoms reported Musculoskeletal: No symptoms reported Skin: No symptoms reported Hematologic/Lymphatic: No symptoms reported Neurological/Psychological: See HPI -: Yes All other systems reviewed and negative Physical Exam - General General appearance: Appears well, Alert - HEENT Head: Normocephalic, Atraumatic Eyes: Normal Pupils: PERRL - Respiratory Respiratory status: No respiratory distress Chest status: Nontender Breath sounds: Normal Chest palpation: Normal - Cardiovascular Rhythm: Regular Heart sounds: Normal auscultation Murmur: No - Abdominal Inspection: Normal Distension: No distension Bowel sounds: Normal Tenderness: Nontender - Extremities General upper extremity: Normal inspection. No: Edema General lower extremity: Normal inspection. No: Edema - Neurological Neuro grossly intact: Yes Cognition: Normal Orientation: AAOx4 - Psychological Associated symptoms: Manic - Mild., Other - Pressured speech. - Skin Skin Temperature: Warm Skin Moisture: Dry Skin Color: Normal - Vital signs Vitals: Temp Pulse Resp BP Pulse Ox 98.0 F 97 20 132/80 H 97 01/14/20 11:34 01/14/20 11:34 01/14/20 11:34 01/14/20 11:34 01/14/20 11:34 Course - Vital Signs Vital signs: Temp Pulse Resp BP Pulse Ox 98.0 F 97 20 132/80 H 97 01/14/20 11:34 01/14/20 11:34 01/14/20 11:34 01/14/20 11:34 01/14/20 11:34 Discharge - Discharge Clinical Impression: Noncompliance with medication regimen, Homeless single person Bipolar disorder Qualifiers: Active/Remission status: remission status unspecified Qualified Code(s): F31.9 - Bipolar disorder, unspecified Condition: Stable Disposition: HOME, SELF-CARE Additional Instructions: You have been evaluated by both medical and behavioral health teams for passive suicidal ideation and have been deemed appropriate for discharge. While in the emergency department you received the following services: Medical screening and assessment, nursing services, dietary services, pharmacological services, one-on-one counseling and/or psychotherapy, environmental services, and continuous observation by a patient product safety and standards engineer. You have been provided with a list of socioeconomic resources in the community, with the contact information for the homeless snf highlighted. You have also been provided with an outpatient mental health resource list. You are encouraged to follow up with a mental health provider, and to be compliant with medications and therapy. The contact information for mobile crisis has been provided, as needed. SUICIDAL IDEATION: Suicidal ideation is a common medical term for thoughts about suicide, which may be as detailed as a formulated plan, without the suicidal act itself. Although most people who undergo suicidal ideation do not commit suicide, some go on to make suicide attempts. The range of suicidal ideation varies greatly from fleeting to detailed planning, role playing, and unsuccessful attempts. While thoughts about suicide are common, most people do not carry out serious actions to commit suicide. Based upon your evaluation and discussion with you, we do not believe you are currently at risk to act upon your thoughts of suicide. You have agreed to return to the Emergency Department, at any time, if you feel inclined to act upon your suicidal thoughts. AT ANY TIME, IF YOUR SYMPTOMS CHANGE SIGNIFICANTLY OR WORSEN OR YOU DEVELOP NEW SYMPTOMS, RETURN TO THE EMERGENCY DEPARTMENT IMMEDIATELY FOR RE-EVALUATION. Referrals: [facility] [Outside] - Follow up as needed I personally performed the services described in the documentation, reviewed and edited the documentation which was dictated to the scribe in my presence, and it accurately records my words and actions.
[2020-01-14 14:58] VITALS: BP 112/73
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
== END 2020-01-14 14:40 | disposition home or self-care (01) ==
LOC: ER 11:24
DX: F31.9 Bipolar disorder, unspecified (principal); Z59.0 Homelessness; Z91.14 Patient's other noncompliance with medication regimen; Z88.8 Allergy status to other drugs, medicaments and biological substances; F17.210 Nicotine dependence, cigarettes, uncomplicated
CPT/HCPCS: 99284

== ENCOUNTER → 2020-04-07 | Outpatient (CLI) | payer MEDICAID ==
--- NOTE | 2020-04-07 11:07 | RADIOLOGY REPORT (SQ) ---
EXAM DESCRIPTION: ANKLE RIGHT COMPLETE IMAGES COMPLETED DATE/TIME: 04/07/2020 10:41 am REASON FOR STUDY: RT ANKLE PAIN; CHRONIC LUMBAR PAIN M25.571 PAIN IN RIGHT ANKLE AND JOINTS OF RIGH T FOOT M54.5 LOW BACK PAIN COMPARISON: AP, lateral common oblique views of the right ankle from 11/29/2014. NUMBER OF VIEWS: Three views. TECHNIQUE: AP, lateral, and oblique radiographic images acquired of the right ankle. LIMITATIONS: None. FINDINGS: MINERALIZATION: Normal. BONES: The 3 orthopedic screws that transfix the distal tibia are intact. There is no acute fracture . The ankle mortise and talar dome are intact. JOINTS: No effusion. SOFT TISSUES: No soft tissue swelling or radiopaque foreign body. The Achilles tendon silhouette is intact. OTHER: No other finding. IMPRESSION: 3 orthopedic screws that transfix the distal tibia. There is no acute osseous abnormali ty of the right ankle. TECHNICAL DOCUMENTATION: JOB ID: [id number] 2010 [employer] All Rights Reserved Reading location - IP/workstation name: [email or web address]
--- NOTE | 2020-04-07 11:10 | RADIOLOGY REPORT (SQ) ---
EXAM DESCRIPTION: LUMBAR SPINE 2 VIEWS IMAGES COMPLETED DATE/TIME: 04/07/2020 10:41 am REASON FOR STUDY: RT ANKLE PAIN; CHRONIC LUMBAR PAIN M25.571 PAIN IN RIGHT ANKLE AND JOINTS OF RIGH T FOOT M54.5 LOW BACK PAIN COMPARISON: None. NUMBER OF VIEWS: Two views. TECHNIQUE: AP and lateral radiographic images acquired of the lumbar spine. LIMITATIONS: None. FINDINGS: MINERALIZATION: Normal. SEGMENTATION: There are 5 lumbar-type vertebral bodies. There is no transitional anatomy at the lumb osacral junction. ALIGNMENT: Normal. VERTEBRAE: The lumbar vertebral body heights are preserved. There is no fracture. DISCS: The intervertebral discs are preserved. POSTERIOR ELEMENTS: Intact. HARDWARE: None in the spine. PARASPINAL SOFT TISSUES: Subtle calcifications that project within the right upper quadrant could rep resent cholelithiasis. PELVIS: Intact. OTHER: No other finding. IMPRESSION: No fracture or malalignment of the lumbar spine. TECHNICAL DOCUMENTATION: JOB ID: [id number] 2010 [employer]- All Rights Reserved Reading location - IP/workstation name: [email or web address]
== END ==
LOC: RAD 10:13
PROVIDERS: ATTEND Nurse Practitioner Primary Care
DX: M54.5 Low back pain (principal); M25.571 Pain in right ankle and joints of right foot
CPT/HCPCS: 72100

== ENCOUNTER 2020-04-23 10:25 | Emergency (ER) | payer MEDICAID ==
[2020-04-23] MEDS ORDERED: KETOROLAC TROMETHAMINE INJ/PF 30 MG/1 ML SDV IV ONE (10:38)
[2020-04-23] MEDS ORDERED: CLINDAMYCIN 600 MG/D5W RTU 600 MG/50 ML RTUPB IV ONE (10:39)
--- NOTE | 2020-04-23 10:40 | ER Document Report ---
ED Medical Screen (RME) - General Chief Complaint: Mouth Problem Stated Complaint: MOUTH PAIN Time Seen by Provider: 04/23/20 10:32 Primary Care Provider: SEGUN KIMBALL FNP-C [Primary Care Provider] - Follow up as needed Mode of Arrival: Ambulatory Information source: Patient Notes: 45-year-old male presented to ED for pain to the upper jaw with swelling up to past the eyes. He states he had a bump on the roof of his mouth and then the swelling started soon after. He states he did not pop the bump on the roof of his mouth but he did wake up with blood all over his pillow. He is alert oriented respirations regular nonlabored speaking in full sentences. He does have extreme pain to the jaw. I have greeted and performed a rapid initial assessment of this patient. A comprehensive ED assessment and evaluation of the patient, analysis of test results and completion of medical decision making process will be conducted by an additional ED providers. TRAVEL OUTSIDE OF THE [place] IN LAST 30 DAYS: No - Related Data Allergies/Adverse Reactions: Bran [From Oat Bran] Allergy (Verified 04/23/20 10:33) dietary supplement [From Oat Bran] Allergy (Verified 04/23/20 10:33) No Known Drug Allergies Allergy (Verified 04/23/20 10:33) mayonaise Allergy (Uncoded 04/23/20 10:33) Past Medical History - Social History Family history: Reviewed & Not Pertinent - Past Medical History Cardiac Medical History: Denies: Hx Coronary Artery Disease, Hx Heart Attack, Hx Hypertension Pulmonary Medical History: Denies: Hx Asthma, Hx Bronchitis, Hx COPD, Hx Pneumonia Neurological Medical History: Denies: Hx Cerebrovascular Accident, Hx Seizures Renal/ Medical History: Denies: Hx Peritoneal Dialysis Musculoskeltal Medical History: Denies Hx Arthritis, Reports Hx Musculoskeletal Trauma Psychiatric Medical History: Reports: Hx Attention Deficit Hyperactivity Disorder, Hx Bipolar Disorder, Hx Depression, Hx Schizophrenia Traumatic Medical History: Reports: Hx Fractures Past Surgical History: Reports: Hx Abdominal Surgery - hernia, Hx Inguinal Hernia, Hx Orthopedic Surgery - right ankle, Hx Umbilical Hernia - Immunizations Immunizations up to date: Yes Hx Diphtheria, Pertussis, Tetanus Vaccination: Yes Doctor's Discharge - Discharge Referrals: SEGUN KIMBALL FNP-C [Primary Care Provider] - Follow up as needed
[2020-04-23 11:13] LABS: ABSOLUTE EOSINOPHILS # (AUTO) 0.1 10^3/uL (0.0-0.6); HEMOGLOBIN 15.8 g/dL (13.5-17.0); TOTAL CELLS COUNTED % (AUTO) 100 %
[2020-04-23 11:27] LABS: ABSOLUTE BASOPHILS # (AUTO) 0.1 10^3/uL (0.0-0.2); ABSOLUTE LYMPHOCYTES (AUTO) 1.4 10^3/uL (0.5-4.7); ABSOLUTE MONOCYTES (AUTO) 0.9 10^3/uL (0.1-1.4); ABSOLUTE NEUT (AUTO) 5.6 10^3/uL (1.7-8.2); BASOPHILS % (AUTO) 0.6 % (0-2); EOSINOPHILS % (AUTO) 0.9 % (0-6); HEMATOCRIT 44.8 % (37.9-51.0); LYMPHOCYTES % (AUTO) 17.2 % (13-45); MEAN CORPUSCULAR HEMOGLOBIN 32.2 pg (27.0-33.4); MEAN CORPUSCULAR HGB CONC 35.3 g/dL (32.0-36.0); MEAN CORPUSCULAR VOLUME 91 fl (80-97); MONOCYTES % (AUTO) 11.2 % (3-13); PLATELET COUNT 303 10^3/uL (150-450); RED BLOOD COUNT 4.92 10^6/uL (4.35-5.55); RED CELL DISTRIBUTION WIDTH 13.6 % (11.5-14.0); SEGMENTED NEUTROPHILS % (AUTO) 70.1 % (42-78)
[2020-04-23 11:36] LABS: ALBUMIN 4.3 g/dL (3.5-5.0); ALCOHOL < 10 mg/dL (NONE DETECTED); ALKALINE PHOSPHATASE 98 U/L (38-126); ANION GAP 5 (5-19); ASPARTATE AMINO TRANSFERASE 26 U/L (17-59); BILIRUBIN,TOTAL 1.2 mg/dL (0.2-1.3); BLOOD UREA NITROGEN 6 mg/dL (7-20); CALCIUM 9.9 mg/dL (8.4-10.2); CARBON DIOXIDE 32 mmol/L (22-30); CHLORIDE 101 mmol/L (98-107); GLUCOSE 92 mg/dL (75-110); POTASSIUM 4.6 mmol/L (3.6-5.0); TOTAL PROTEIN 7.8 g/dL (6.3-8.2)
--- NOTE | 2020-04-23 11:41 | RADIOLOGY REPORT (SQ) ---
EXAM DESCRIPTION: CT FACIAL AREA WITH IMAGES COMPLETED DATE/TIME: 04/23/2020 11:05 am REASON FOR STUDY: Pain swelling to the face COMPARISON: CT facial bones 02/14/2017 TECHNIQUE: Post contrast images through the facial bones and orbits windowed for bone and soft tissu e. Additional coronal and sagittal reconstructed images reviewed. All images stored on PACS. All CT scanners at this facility use dose modulation, iterative reconstruction, and/or weight based d osing when appropriate to reduce radiation dose to as low as reasonably achievable (ALARA). [facility]: Dose Right [facility]: CareDose [facility]: Dose Right [facility]: Teradose 4D [facility]: Clipmarks CONTRAST TYPE AND DOSE: contrast/concentration: Isovue 350.00 mmol/ml; Total Contrast Delivered: 50. 0 ml; Total Saline Delivered: 50.0 ml RENAL FUNCTION: None required. The patient is less than 50 years old. RADIATION DOSE: CT Rad equipment meets quality standard of care and radiation dose reduction techniq ues were employed. CTDIvol: 30.4 mGy. DLP: 623 mGy-cm. . LIMITATIONS: None. FINDINGS: A subperiosteal abscess is present along the anterior aspect left maxilla, 1.4 x 0.5 cm in size on axial images 32-38. Overlying diffuse soft tissue swelling of the left upper lip and premax illary facial soft tissues is present. Abscess is adjacent to a heavily decayed left upper 1st premo lar tooth with periapical tooth root lucencies. These findings are best shown on axial images 32-38, sagittal image 41. FACIAL BONES: No fracture or bone lesion. ORBITS: Intact. No fracture. Symmetric intact globes and retroorbital soft tissues. PARANASAL SINUSES: Circumferential mucous membrane thickening left maxillary sinus extending into the maxillary sinus outlet on coronal image 19. SOFT TISSUES: As above INFERIOR BRAIN: Limited view. No acute findings. OTHER: No other significant finding. IMPRESSION: Subperiosteal abscess along the anterior left maxilla adjacent toheavily decayed left up per 1st premolar tooth TECHNICAL DOCUMENTATION: JOB ID: [id number] Quality ID # [id number]: Final reports with documentation of one or more dose reduction techniques (e.g., Au tomated exposure control, adjustment of the mA and/or kV according to patient size, use of iterative reconstruction technique) 2010 [employer]- All Rights Reserved Reading location - IP/workstation name: [email or web address]
[2020-04-23] MEDS ORDERED: PIPERACILLIN/TAZOBACTAM 4.5 GM VIAL IV ONE (11:49)
[2020-04-23] MEDS ORDERED: NORMAL SALINE 1000 ML 1,000 ML IV ONE (11:50)
[2020-04-23 12:05] LABS: APPEARANCE,URINE CLEAR; BILIRUBIN,URINE NEGATIVE (NEGATIVE); COLOR,URINE YELLOW; GLUCOSE, URINE 50 mg/dL (NEGATIVE); KETONES,URINE NEGATIVE (NEGATIVE); LEUKOCYTE ESTERASE,URINE NEGATIVE (NEGATIVE); NITRITE,URINE NEGATIVE (NEGATIVE); PROTEIN,URINE NEGATIVE (NEGATIVE); URINE SPECIFIC GRAVITY 1.046
[2020-04-23 12:24] LABS: URINE AMPHETAMINES SCREEN NEGATIVE; URINE BARBITURATES SCREEN NEGATIVE; URINE BENZODIAZEPINES SCREEN NEGATIVE; URINE METHADONE SCREEN NEGATIVE; URINE PHENCYCLIDINE SCREEN NEGATIVE
[2020-04-23 12:25] LABS: URINE COCAINE SCREEN UNCONFIRMED POSITIVE; URINE MARIJUANA (THC) SCREEN UNCONFIRMED POSITIVE
[2020-04-23 13:24] VITALS: BP 114/82
--- NOTE | 2020-04-23 14:10 | ER Document Report ---
Entered by SIDNEY VARGAS SCRIBE 04/23/20 1145 Acting as scribe for:EBNSON MAHAJAN MD ED General - General Chief Complaint: Mouth Problem Stated Complaint: MOUTH PAIN Time Seen by Provider: 04/23/20 10:32 Primary Care Provider: SEGUN KIMBALL FNP-C [Primary Care Provider] - Follow up as needed Mode of Arrival: Ambulatory Information source: Patient Notes: This 45 year old male patient presents to the emergency department today with complaints of the left side of his face being swollen the past x3 days. Patient states "red liquid" was on his pillow after laying down and came from his gum. Patient states he is not able to eat due to the pain when chewing. TRAVEL OUTSIDE OF THE [place] IN LAST 30 DAYS: No - Related Data Allergies/Adverse Reactions: Bran [From Oat Bran] Allergy (Verified 04/23/20 10:33) dietary supplement [From Oat Bran] Allergy (Verified 04/23/20 10:33) No Known Drug Allergies Allergy (Verified 04/23/20 10:33) mayonaise Allergy (Uncoded 04/23/20 10:33) Home Medications: lithium. zoloft Past Medical History - General Information source: Patient - Social History Smoking Status: Current Every Day Smoker Cigarette use (# per day): Yes Chew tobacco use (# tins/day): No Frequency of alcohol use: None Drug Abuse: None Family History: Arthritis, CVA, DM, Hypertension Patient has homicidal ideation: No Musculoskeletal Medical History: Reports Hx Musculoskeletal Trauma Psychiatric Medical History: Reports: Hx Attention Deficit Hyperactivity Disorder, Hx Bipolar Disorder, Hx Depression, Hx Schizophrenia Traumatic Medical History: Reports: Hx Fractures Past Surgical History: Reports: Hx Abdominal Surgery - hernia, Hx Inguinal Hernia, Hx Orthopedic Surgery - right ankle, Hx Umbilical Hernia - Immunizations Immunizations up to date: Yes Hx Diphtheria, Pertussis, Tetanus Vaccination: Yes Review of Systems - Review of Systems Constitutional: No symptoms reported EENT: See HPI, Other - L face swelling and pain Cardiovascular: No symptoms reported Respiratory: No symptoms reported Gastrointestinal: No symptoms reported Genitourinary: No symptoms reported Male Genitourinary: No symptoms reported Musculoskeletal: No symptoms reported Skin: No symptoms reported Hematologic/Lymphatic: No symptoms reported Neurological/Psychological: No symptoms reported -: Yes All other systems reviewed and negative Physical Exam - Vital signs Vitals: Temp 98.5 F 04/23/20 10:33 - General General appearance: Appears well, Alert - HEENT Eyes: Normal Pupils: PERRL Mouth/Lips: Caries, Dental fracture - 1st L upper molar Notes: Swelling of the left facial soft tissue. Tenderness with palpation. - Respiratory Respiratory status: No respiratory distress Chest status: Nontender Breath sounds: Normal Chest palpation: Normal - Cardiovascular Rhythm: Regular Heart sounds: Normal auscultation Murmur: No - Abdominal Inspection: Normal Distension: No distension Bowel sounds: Normal Tenderness: Nontender - Extremities General upper extremity: Normal inspection. No: Edema General lower extremity: Normal inspection. No: Edema - Neurological Neuro grossly intact: Yes Cognition: Normal Orientation: AAOx4 Speech: Normal - Psychological Associated symptoms: Normal affect, Normal mood - Skin Skin Temperature: Warm Skin Moisture: Dry Skin Color: Normal Course - Re-evaluation Re-evalutation: 04/23/20 13:40 Patient states he feels better. Reports less pain at this time. - Vital Signs Vital signs: Temp Pulse Resp BP Pulse Ox 98.1 F 70 16 114/82 98 04/23/20 13:23 04/23/20 13:23 04/23/20 13:23 04/23/20 13:23 04/23/20 13:23 04/23/20 13:40 Vital signs are stable - Laboratory Result Diagrams: 04/23/20 10:45 04/23/20 10:45 Laboratory results interpreted by me: 04/23/20 04/23/20 10:45 11:22 Carbon Dioxide 32 H BUN 6 L Urine Glucose (UA) 50 H Urine Urobilinogen 4.0 H 04/23/20 13:40 Laboratory shows a normal white count. Also of note is positive urine drug screen for cocaine and marijuana. - Diagnostic Test Radiology reviewed: Image reviewed, Reports reviewed Radiology results interpreted by me: 04/23/20 13:41 CT facial shows an abscess above the left upper jaw over the carious teeth greatest over the first premolar. Discharge - Discharge Clinical Impression: Dental abscess, Facial cellulitis Condition: Stable Disposition: HOME, SELF-CARE Instructions: Abscess ([facility]) Additional Instructions: Dental Infection or Abscess You have an infection, perhaps an abscess (pus formation) of the gum around one of your teeth, which is probably decayed. If there is an abscess, it may drain on its own or it may need to be opened or lanced. Severe swelling or drainage around a tooth usually means a deep dental abscess which usually requires evaluation and treatment by a dentist or oral surgeon. Antibiotics may be prescribed while awaiting dental treatment. If you develop high fever with chills, worsening pain, or increasing swelling in the area, see a dentist or oral surgeon immediately or return to the Emergency Department immediately. Prescriptions: Amoxicillin/Potassium Clav [Augmentin 875-125 Tablet] 1 tab PO BID #20 tab Ibuprofen [Ibu] 800 mg PO TID PRN #21 tablet PRN Reason: For Pain Scale 3-5 Referrals: SEGUN KIMBALL, PROPULSION MOTOR AND GENERATOR REPAIRER-C [Primary Care Provider] - Follow up as needed I personally performed the services described in the documentation, reviewed and edited the documentation which was dictated to the scribe in my presence, and it accurately records my words and actions.
== END 2020-04-23 13:58 | disposition home or self-care (01) ==
LOC: ER 10:25
DX: K04.7 Periapical abscess without sinus (principal); L03.211 Cellulitis of face; K02.9 Dental caries, unspecified; F17.210 Nicotine dependence, cigarettes, uncomplicated; F31.9 Bipolar disorder, unspecified; Z79.899 Other long term (current) drug therapy; Z91.018 Allergy to other foods
CPT/HCPCS: 99283; 96361; 96375; 96365; 96367; 36415; 80307 ×2; 85025; 80053; 81001; 70487; S0077; J1885; J7030; J2543

== ENCOUNTER 2020-04-25 23:18 | Emergency (ER) | payer MEDICAID ==
--- NOTE | 2020-04-25 23:28 | ER Document Report ---
ED Medical Screen (RME) - General Chief Complaint: Laceration Stated Complaint: RIGHT FINGER LACERATION Time Seen by Provider: 04/25/20 23:24 Primary Care Provider: SEGUN KIMBALL FNP-C [Primary Care Provider] - Follow up as needed Mode of Arrival: Ambulatory Information source: Patient Notes: HPI; 45-year-old male presents to the emergency room with laceration to his right middle finger. States he cut it on a pocket knife. Bleeding is controlled. Patient is right-handed. Tetanus is up-to-date. PE: Alert and oriented x3. Mild distress noted. 3 cm laceration to the medial distal aspect of the right middle finger. Bleeding is controlled. Positive right radial pulse. Capillary refill less than 3 seconds. I have greeted and performed a rapid initial assessment of this patient. A comprehensive ED assessment and evaluation of the patient, analysis of test results and completion of the medical decision making process will be conducted by additional ED providers. I have specifically instructed the patient or family members with the patient to immediately return to any nursing staff should anything change in the patient's condition or with their chief complaint. TRAVEL OUTSIDE OF THE [place] IN LAST 30 DAYS: No - Related Data Allergies/Adverse Reactions: Bran [From Oat Bran] Allergy (Verified 04/25/20 23:24) dietary supplement [From Oat Bran] Allergy (Verified 04/25/20 23:24) No Known Drug Allergies Allergy (Verified 04/25/20 23:24) mayonaise Allergy (Uncoded 04/23/20 10:33) Past Medical History - Social History Family history: Reviewed & Not Pertinent - Past Medical History Cardiac Medical History: Denies: Hx Coronary Artery Disease, Hx Heart Attack, Hx Hypertension Pulmonary Medical History: Denies: Hx Asthma, Hx Bronchitis, Hx COPD, Hx Pneumonia Neurological Medical History: Denies: Hx Cerebrovascular Accident, Hx Seizures Renal/ Medical History: Denies: Hx Peritoneal Dialysis Musculoskeltal Medical History: Denies Hx Arthritis, Reports Hx Musculoskeletal Trauma Psychiatric Medical History: Reports: Hx Attention Deficit Hyperactivity Disorder, Hx Bipolar Disorder, Hx Depression, Hx Schizophrenia Traumatic Medical History: Reports: Hx Fractures Past Surgical History: Reports: Hx Abdominal Surgery - hernia, Hx Inguinal Hernia, Hx Orthopedic Surgery - right ankle, Hx Umbilical Hernia - Immunizations Immunizations up to date: Yes Hx Diphtheria, Pertussis, Tetanus Vaccination: Yes Physical Exam - Vital signs Vitals: Temp Pulse Resp BP Pulse Ox 98.6 F 97 18 128/75 H 99 04/25/20 23:22 04/25/20 23:22 04/25/20 23:22 04/25/20 23:22 04/25/20 23:22 Course - Vital Signs Vital signs: Temp Pulse Resp BP Pulse Ox 98.6 F 97 18 128/75 H 99 04/25/20 23:22 04/25/20 23:22 04/25/20 23:22 04/25/20 23:22 04/25/20 23:22 Doctor's Discharge - Discharge Referrals: SEGUN KIMBALL, AMBULANCE DRIVER-C [Primary Care Provider] - Follow up as needed
[2020-04-26] MEDS ORDERED: LIDOCAINE 1% INJ-PF (10 MG/ML) 30 ML SDV INJ ONE (00:30)
--- NOTE | 2020-04-26 00:32 | ER Document Report ---
ED Wound - General Chief Complaint: Laceration Stated Complaint: RIGHT FINGER LACERATION Time Seen by Provider: 04/25/20 23:24 Primary Care Provider: SEGUN KIMBALL FNP-C [Primary Care Provider] - Follow up as needed Mode of Arrival: Ambulatory Notes: Patient is a 45-year-old male that comes emergency department for chief complaint of laceration to the right middle finger. He states that he was throwing a knife and a tree, when he tried to grab the knife back out of the tree he accidentally grabbed a knife wrong and it caused a laceration to the side of the finger. He denies any other injuries. He states he had his tetanus updated last year. He denies any other complaints. Patient is right-handed. TRAVEL OUTSIDE OF THE [place] IN LAST 30 DAYS: No - Related Data Allergies/Adverse Reactions: Bran [From Oat Bran] Allergy (Verified 04/25/20 23:24) dietary supplement [From Oat Bran] Allergy (Verified 04/25/20 23:24) No Known Drug Allergies Allergy (Verified 04/25/20 23:24) mayonaise Allergy (Uncoded 04/23/20 10:33) Past Medical History - General Information source: Patient - Social History Smoking Status: Current Every Day Smoker Frequency of alcohol use: Social Drug Abuse: Marijuana Lives with: Family Family History: Arthritis, CVA, DM, Hypertension Patient has homicidal ideation: No - Past Medical History Cardiac Medical History: Denies: Hx Coronary Artery Disease, Hx Heart Attack, Hx Hypertension Pulmonary Medical History: Denies: Hx Asthma, Hx Bronchitis, Hx COPD, Hx Pneumonia Neurological Medical History: Denies: Hx Cerebrovascular Accident, Hx Seizures Renal/ Medical History: Denies: Hx Peritoneal Dialysis Musculoskeletal Medical History: Denies Hx Arthritis, Reports Hx Musculoskeletal Trauma Psychiatric Medical History: Reports: Hx Attention Deficit Hyperactivity Disorder, Hx Bipolar Disorder, Hx Depression, Hx Schizophrenia Traumatic Medical History: Reports: Hx Fractures Past Surgical History: Reports: Hx Abdominal Surgery - hernia, Hx Inguinal Hernia, Hx Orthopedic Surgery - right ankle, Hx Umbilical Hernia - Immunizations Immunizations up to date: Yes Hx Diphtheria, Pertussis, Tetanus Vaccination: Yes Review of Systems - Review of Systems Constitutional: No symptoms reported EENT: No symptoms reported Cardiovascular: No symptoms reported Respiratory: No symptoms reported Gastrointestinal: No symptoms reported Genitourinary: No symptoms reported Male Genitourinary: No symptoms reported Musculoskeletal: See HPI Skin: See HPI Hematologic/Lymphatic: No symptoms reported Neurological/Psychological: No symptoms reported Physical Exam - Vital signs Vitals: Temp Pulse Resp BP Pulse Ox 98.6 F 97 18 128/75 H 99 04/25/20 23:22 04/25/20 23:22 04/25/20 23:22 04/25/20 23:22 04/25/20 23:22 - Notes Notes: GENERAL: Alert, interacts well. No acute distress. HEAD: Normocephalic, atraumatic. EYES: Pupils equal, round, and reactive to light. Extraocular movements intact. ENT: Oral mucosa moist, tongue midline. Oropharynx unremarkable. Airway patent. LUNGS: Clear to auscultation bilaterally, no wheezes, rales, or rhonchi. No respiratory distress. Non-tender chest wall. HEART: Regular rate and rhythm. No murmur EXTREMITIES: There is a linear, approximately 3 cm laceration which is partial- thickness located along the side of the right middle finger approximately alongside the PIP joint and extending towards the end of the finger but not including the finger pad. Full range of motion, normal strength against resistance in flexion extension, normal capillary refill and sensation. Wound is easily explored and there is no sign of tendon, nerve, or large vessel injury. BACK: no cervical, thoracic, lumbar midline tenderness. No saddle anesthesia, normal distal neurovascular exam. Moves all extremities in full range of motion. NEUROLOGICAL: Alert and oriented x3. Normal speech. Cranial nerves II through XII grossly intact. Strength 5/5 in all extremities. PSYCH: Normal affect, normal mood. SKIN: Warm, dry, normal turgor. No rashes or lesions noted. Course - Re-evaluation Re-evalutation: Wound is easily explored, was thoroughly cleansed, closed. No signs of concerning injury. Discussed care, follow-up, return precautions. Patient states understanding and agreement. - Vital Signs Vital signs: Temp Pulse Resp BP Pulse Ox 98.5 F 70 18 106/75 95 04/26/20 01:37 04/26/20 01:37 04/26/20 01:37 04/26/20 01:37 04/26/20 01:37 Procedures - Laceration/Wound Repair Right middle finger Wound length (cm): 3 Wound's Depth, Shape: Linear Anesthetic type: 1% Lidocaine Wound explored: Clean, No foreign body removed Irrigated w/ Saline (mLs): 75 Wound Repaired With: Sutures Suture Size/Type: 5:0, Ethilon Number of Sutures: 7 Layer Closure?: No Post-procedure wound care: Sterile dressing applied Post-procedure NV exam normal: Yes Complications: No Discharge - Discharge Clinical Impression: Finger laceration Qualifiers: Encounter type: initial encounter Finger: middle finger Damage to nail status: without damage Foreign body presence: without foreign body Laterality: right Qualified Code(s): S61.212A - Laceration without foreign body of right middle finger without damage to nail, initial encounter Condition: Stable Disposition: HOME, SELF-CARE Additional Instructions: The wound was repaired with sutures. Keep clean, clean with soap and water, dab dry, avoid soaking or scrubbing. You can apply thin film of topical antibiotic. Sutures need to be removed in about 7 days at a medical facility. Return sooner for any concerning symptoms including signs of infection such as developing pain, swelling, redness, discolored discharge, fever, or any other concerning symptoms. Forms: Return to Work Referrals: SEGUN KIMBALL FNP-C [Primary Care Provider] - Follow up as needed
[2020-04-26 01:39] VITALS: BP 106/75
== END 2020-04-26 01:55 | disposition home or self-care (01) ==
LOC: ER 23:18
DX: S61.212A Laceration without foreign body of right middle finger without damage to nail, initial encounter (principal); W26.0XXA Contact with knife, initial encounter; Y93.89 Activity, other specified; F17.200 Nicotine dependence, unspecified, uncomplicated; F12.10 Cannabis abuse, uncomplicated; Z91.018 Allergy to other foods
CPT/HCPCS: 99282; 12002; J3490

== ENCOUNTER 2020-10-10 13:13 | Emergency (ER) | payer MEDICAID ==
--- NOTE | 2020-10-10 13:33 | ER Document Report ---
ED Medical Screen (RME) - General Chief Complaint: Anxiety Stated Complaint: POSSIBLE ANXIETY Time Seen by Provider: 10/10/20 13:21 Primary Care Provider: SEGUN KIMBALL FNP-C [Primary Care Provider] - Follow up as needed TRAVEL OUTSIDE OF THE [place] IN LAST 30 DAYS: No - HPI Notes: 10/10/20 13:29 45-year-old female with a history of crack cocaine substance abuse for the last 10 years presents to the emergency room with his girlfriend evaluation due to being very manic, patient reports upon a PS4 last night to get some crack cocaine, he last used at 8:10 PM. Patient does endorse SI, unable to get a specific plan from patient. Patient does have a history of bipolar and schizophrenia, he is taking lithium 50 mg daily as well as Zoloft 100 mg daily. Girlfriend states he gets very violent when he is using. Denies any chest pain, shortness of breath, nausea, vomiting, diarrhea. Denies any homicidal ideation I have greeted and performed a rapid initial assessment of this patient. A comprehensive ED assessment and evaluation of the patient, analysis of test results and completion of the medical decision making process will be conducted by additional ED providers. PHYSICAL EXAMINATION: GENERAL: Well-appearing, well-nourished and in no acute distress. HEAD: Atraumatic, normocephalic. NECK: Normal range of motion CV: s1, s2 regular SKIN: Warm, Dry, normal turgor, no rashes or lesions noted. The patient was evaluated during a global COVID-19 pandemic and that diagnosis was suspected/considered upon their initial presentation. Their evaluation, treatment and testing was consistent with current guidelines for patients who present with complaints or symptoms and may be related to COVID-19. - Related Data Allergies/Adverse Reactions: Bran [From Oat Bran] Allergy (Verified 04/25/20 23:24) dietary supplement [From Oat Bran] Allergy (Verified 04/25/20 23:24) No Known Drug Allergies Allergy (Verified 04/25/20 23:24) mayonaise Allergy (Uncoded 04/23/20 10:33) Past Medical History - Social History Family history: Reviewed & Not Pertinent - Past Medical History Cardiac Medical History: Denies: Hx Coronary Artery Disease, Hx Heart Attack, Hx Hypertension Pulmonary Medical History: Denies: Hx Asthma, Hx Bronchitis, Hx COPD, Hx Pneumonia Neurological Medical History: Denies: Hx Cerebrovascular Accident, Hx Seizures Renal/ Medical History: Denies: Hx Peritoneal Dialysis Musculoskeltal Medical History: Denies Hx Arthritis, Reports Hx Musculoskeletal Trauma Psychiatric Medical History: Reports: Hx Attention Deficit Hyperactivity Disorder, Hx Bipolar Disorder, Hx Depression, Hx Schizophrenia Traumatic Medical History: Reports: Hx Fractures Past Surgical History: Reports: Hx Abdominal Surgery - hernia, Hx Inguinal Hernia, Hx Orthopedic Surgery - right ankle, Hx Umbilical Hernia - Immunizations Immunizations up to date: Yes Hx Diphtheria, Pertussis, Tetanus Vaccination: Yes Physical Exam - Vital signs Vitals: Temp Pulse Resp BP Pulse Ox 98.4 F 71 16 107/77 98 10/09/20 13:18 10/09/20 13:18 10/09/20 13:18 10/09/20 13:18 10/09/20 13:18 Course - Vital Signs Vital signs: Temp Pulse Resp BP Pulse Ox 98.4 F 71 16 107/77 98 10/09/20 13:18 10/09/20 13:18 10/09/20 13:18 10/09/20 13:18 10/09/20 13:18 Doctor's Discharge - Discharge Referrals: SEGUN KIMBALL FNP-C [Primary Care Provider] - Follow up as needed
[2020-10-10 14:15] LABS: ABSOLUTE EOSINOPHILS # (AUTO) 0.1 10^3/uL (0.0-0.6); ABSOLUTE LYMPHOCYTES (AUTO) 2.1 10^3/uL (0.5-4.7); ABSOLUTE MONOCYTES (AUTO) 0.3 10^3/uL (0.1-1.4); ABSOLUTE NEUT (AUTO) 2.2 10^3/uL (1.7-8.2); BASOPHILS % (AUTO) 0.8 % (0-2); EOSINOPHILS % (AUTO) 2.7 % (0-6); HEMOGLOBIN 14.4 g/dL (13.5-17.0); LYMPHOCYTES % (AUTO) 43.5 % (13-45); MEAN CORPUSCULAR HEMOGLOBIN 30.9 pg (27.0-33.4); MEAN CORPUSCULAR HGB CONC 33.6 g/dL (32.0-36.0); MEAN CORPUSCULAR VOLUME 92 fl (80-97); MONOCYTES % (AUTO) 6.9 % (3-13); PLATELET COUNT 291 10^3/uL (150-450); RED BLOOD COUNT 4.66 10^6/uL (4.35-5.55); RED CELL DISTRIBUTION WIDTH 13.3 % (11.5-14.0); SEGMENTED NEUTROPHILS % (AUTO) 46.1 % (42-78); TOTAL CELLS COUNTED % (AUTO) 100 %; WHITE BLOOD COUNT 4.7 10^3/uL (4.0-10.5)
[2020-10-10 14:19] LABS: APPEARANCE,URINE CLEAR; BILIRUBIN,URINE NEGATIVE (NEGATIVE); COLOR,URINE YELLOW; GLUCOSE, URINE NEGATIVE (NEGATIVE); KETONES,URINE NEGATIVE (NEGATIVE); LEUKOCYTE ESTERASE,URINE NEGATIVE (NEGATIVE); NITRITE,URINE NEGATIVE (NEGATIVE); PROTEIN,URINE NEGATIVE (NEGATIVE); URINE SPECIFIC GRAVITY 1.013
[2020-10-10 14:36] LABS: ALBUMIN 4.4 g/dL (3.5-5.0); ALKALINE PHOSPHATASE 97 U/L (38-126); ANION GAP 6 (5-19); ASPARTATE AMINO TRANSFERASE 39 U/L (17-59); BILIRUBIN,DIRECT 0.1 mg/dL (0.0-0.4); BLOOD UREA NITROGEN 11 mg/dL (7-20); CALCIUM 10.3 mg/dL (8.4-10.2); CARBON DIOXIDE 32 mmol/L (22-30); CHLORIDE 102 mmol/L (98-107); GLUCOSE 88 mg/dL (75-110); POTASSIUM 4.7 mmol/L (3.6-5.0); TOTAL PROTEIN 7.5 g/dL (6.3-8.2)
[2020-10-10 14:39] LABS: ACETAMINOPHEN < 10 ug/mL (10-30); ALCOHOL < 10 mg/dL (NONE DETECTED); SALICYLATE < 1.0 mg/dL (2.0-20.0)
[2020-10-10 14:44] LABS: URINE AMPHETAMINES SCREEN NEGATIVE; URINE BARBITURATES SCREEN NEGATIVE; URINE BENZODIAZEPINES SCREEN NEGATIVE; URINE METHADONE SCREEN NEGATIVE; URINE PHENCYCLIDINE SCREEN NEGATIVE
[2020-10-10 14:45] LABS: URINE COCAINE SCREEN UNCONFIRMED POSITIVE; URINE MARIJUANA (THC) SCREEN UNCONFIRMED POSITIVE
--- NOTE | 2020-10-10 15:23 | ER Document Report ---
ED Psych Disorder / Suicide <CHRISTINE SONG - Last Filed: 10/10/20 16:22> - General TRAVEL OUTSIDE OF THE [place] IN LAST 30 DAYS: No <NILO BULLARD - Last Filed: 10/10/20 17:21> - General Chief Complaint: Drug Abuse Stated Complaint: POSSIBLE ANXIETY Time Seen by Provider: 10/10/20 13:21 Primary Care Provider: [facility] [Outside] - Follow up as needed SEGUN KIMBALL FNP-C [Primary Care Provider] - Follow up as needed - HPI Notes: 45-year-old male with past medical history for bipolar, crack cocaine abuse to the emergency department with complaints of wanting help for his crack cocaine abuse and passive SI. He states that he has been using crack cocaine morning and night. He states he even sold his girlfriends Adalberto presents that he could buy more. He states that sometimes he has suicidal thoughts but he does not have a specific plan. He states that he has been to [facility] several times as we ll as Mely[facility]. He states he feels like the programs are not long enough. Denies any HI or hallucinations. States he takes lithium for his bipolar. (NILO BULLARD) - Related Data Allergies/Adverse Reactions: Bran [From Oat Bran] Allergy (Verified 04/25/20 23:24) dietary supplement [From Oat Bran] Allergy (Verified 04/25/20 23:24) No Known Drug Allergies Allergy (Verified 04/25/20 23:24) mayonaise Allergy (Uncoded 04/23/20 10:33) Past Medical History - General Information source: Patient - Social History Smoking Status: Current Every Day Smoker Chew tobacco use (# tins/day): No Frequency of alcohol use: Social Drug Abuse: Cocaine Family History: Arthritis, CVA, DM, Hypertension Patient has homicidal ideation: No - Past Medical History Cardiac Medical History: Denies: Hx Coronary Artery Disease, Hx Heart Attack, Hx Hypertension Pulmonary Medical History: Denies: Hx Asthma, Hx Bronchitis, Hx COPD, Hx Pneumonia Neurological Medical History: Denies: Hx Cerebrovascular Accident, Hx Seizures Renal/ Medical History: Denies: Hx Peritoneal Dialysis Musculoskeletal Medical History: Denies Hx Arthritis, Reports Hx Musculoskeletal Trauma Psychiatric Medical History: Reports: Hx Attention Deficit Hyperactivity Disorder, Hx Bipolar Disorder, Hx Depression, Hx Schizophrenia Traumatic Medical History: Reports: Hx Fractures Past Surgical History: Reports: Hx Abdominal Surgery - hernia, Hx Inguinal Hernia, Hx Orthopedic Surgery - right ankle, Hx Umbilical Hernia - Immunizations Immunizations up to date: Yes Hx Diphtheria, Pertussis, Tetanus Vaccination: Yes <NILO BULLARD - Last Filed: 10/10/20 17:21> Review of Systems - Review of Systems Constitutional: denies: Chills, Fever EENT: No symptoms reported Cardiovascular: denies: Chest pain, Palpitations, Heart racing, Dyspnea, Syncope, Dizziness, Lightheaded Respiratory: denies: Cough, Short of breath Gastrointestinal: denies: Abdominal pain, Diarrhea, Nausea, Vomiting Genitourinary: No symptoms reported Musculoskeletal: No symptoms reported Skin: No symptoms reported Hematologic/Lymphatic: No symptoms reported Neurological/Psychological: Other - Polysubstance abuse -: Yes All other systems reviewed and negative <NILO BULLARD - Last Filed: 10/10/20 17:21> Physical Exam - Vital signs Interpretation: Normal <NILO BULLARD - Last Filed: 10/10/20 17:21> - Vital signs Vitals: Temp Pulse Resp BP Pulse Ox 98.4 F 71 16 107/77 98 10/09/20 13:18 10/09/20 13:18 10/09/20 13:18 10/09/20 13:18 10/09/20 13:18 - Notes Notes: PHYSICAL EXAMINATION: GENERAL: Well-appearing, well-nourished and in no acute distress. HEAD: Atraumatic, normocephalic. EYES: Pupils equal round and reactive to light, extraocular movements intact, sclera anicteric, conjunctiva are normal. ENT: nares patent, oropharynx clear without exudates. Moist mucous membranes. NECK: Normal range of motion, supple without lymphadenopathy LUNGS: Breath sounds clear to auscultation bilaterally and equal. No wheezes rales or rhonchi. HEART: Regular rate and rhythm without murmurs ABDOMEN: Soft, nontender, normoactive bowel sounds. No guarding, no rebound. No masses appreciated. EXTREMITIES: Normal range of motion, no pitting or edema. No cyanosis. NEUROLOGICAL: No focal neurological deficits. Moves all extremities spontaneously and on command. PSYCH: Admits to crack cocaine abuse daily, pressured speech normal affect. Appropriately engages with clinician. Admits to passive SI without any derrick plan. Admits to feeling several outpatient substance abuse programs. Denies HI or hallucinations. SKIN: Warm, Dry, normal turgor, no rashes or lesions noted. (NILO BULLARD) Course - Laboratory Results Result Diagrams: 10/10/20 13:51 10/10/20 13:51 <CHRISTINE SONG - Last Filed: 10/10/20 16:22> - Laboratory Results Result Diagrams: 10/10/20 13:51 10/10/20 13:51 Critical Laboratory Results Reviewed: No Critical Results - Radiology Results Critical Radiology Results Reviewed: No Critical Results <NILO BULLARD - Last Filed: 10/10/20 17:21> - Re-evaluation Re-evalutation: 10/10/20 17:19 Impression: Substance abuse, justus. While patient certainly appears to be manic on exam he does not specifically endorse derrick suicidal ideation with plan. He does use crack cocaine and he does have the insight to know that it is interfering with how he wants to interact with his girlfriend and other people. Did discuss the patient with behavioral health who went and saw the patient. He does not meet criteria for IVC. The plan will be to have him follow-up outpatie nt with [facility] substance [facility] program, [facility], or [facility]. We have given him information to call for these programs. We will discharge the patient home. (NILO BULLARD) - Vital Signs Vital signs: Temp Pulse Resp BP Pulse Ox 98.4 F 71 16 107/77 98 10/09/20 13:18 10/09/20 13:18 10/09/20 13:18 10/09/20 13:18 10/09/20 13:18 - Laboratory Results Laboratory Results Interpreted: 10/10/20 10/10/20 13:51 13:51 Carbon Dioxide 32 H Calcium 10.3 H Urine Urobilinogen 4.0 H Urine Ascorbic Acid 40 H Salicylates < 1.0 L Acetaminophen < 10 L Discharge <CHRISTINE SONG - Last Filed: 10/10/20 16:22> <NILO BULLARD - Last Filed: 10/10/20 17:21> - Discharge Clinical Impression: Drug abuse Condition: Fair Disposition: HOME, SELF-CARE Additional Instructions: You have been evaluated by both medical and behavioral health teams for substance use. You have been deemed appropriate for discharge. While in the emergency department you received the following services/or had access to: Medical screening and assessment, nursing services, dietary services, pharmacological services, one-on-one counseling and/or psychotherapy, environmental services, and continuous observation by a patient food safety specialist. You should continue your home medications as prescribed and follow up with your medication provider. Altered Mental Status An altered mental status is a change in the normal functioning of the brain. This alteration of function can range from minor decreased brain function with some forgetfulness and confusion to complete loss of consciousness and coma. There are many possible causes of an altered mental status and include brain in juries such as trauma or strokes, problems with oxygen supply to the brain, fever and infections of the brain and/or elsewhere in the body, metabolic abnormalities such as low or high blood sugar, overdoses or excessive medication ingestion, and mental and psychiatric illnesses. Sometimes the altered mental status resolves and a definite cause is not determined. If a cause for your altered mental status was found, it has likely been corrected. Your evaluation has not shown any condition that requires that you be admitted to the hospital. It is believed that you are safe to leave and return to your home. If you have a return of your symptoms, you should return for re-evaluation. Follow up care: You are currently involved in outpatient services with [facility] team and are highly recommended to continue outpatient services. You are recommended to utilize the detox/ substance use resource sheet provided to you for voluntary placement in the community. [facility] were highlighted for you as they accept your insurance. You were also given information or Shalonda Rios who assists with substance use and mental health as you inquired for inpatient hospitalization. You have been given a community outpatient referral list to include phone numbers for [facility] and [facility] mobile crisis. If you experience worsening or a significant change in your symptoms, notify the physician immediately, utilize mobile crisis, or return to the Emergency Department at any time for re- evaluation. Dr. Jamison was consulted to care management of this patient; attending physicians in agreement with recommendations and disposition. Referrals: SEGUN KIMBALL, [employer] [Primary Care Provider] - Follow up as needed [facility] [Outside] - Follow up as needed
[2020-10-10 17:27] VITALS: BP 134/102
--- NOTE | 2020-10-10 21:04 | EKG REPORT ---
SEVERITY:- NORMAL ECG - SINUS RHYTHM : Confirmed by: Felix Pedroza MD 10-Oct-2020 21:03:49
--- NOTE | 2020-10-10 22:47 | PSYCHOLOGICAL NOTE ---
Psych Note - Psych Note Date seen by psych provider: 10/10/20 Time seen by psych provider: 14:55 Psych Note: Reason for Consult: substance use and intoxication Consent permissions: girlfriend present at bedside, Rose [phone] Patient is a 45 year old male who was admitted to the ED via POV for suicidal ideations and an overdose. Patient reports using crack cocaine for 10 years and last used last night around 2009. He denies suicidal ideation, plan, and intent. He denies homicidal ideation, plan, and intent. He reports wanting help for his drug abuse and wanting to be sent to a facility to help him get sober. Patient states he is diagnosed with Bipolar and Schizophrenia. He reports being involved in [facility] team and is prescribed [place] 50mg and Zoloft 100mg. Patient has been to [facility] twice in the past and [facility] twice in the past, but is requesting detention substance use facility. Patient also reports going to [facility] in the past for 3 weeks. He reports attempting suicide in the past via pills and this was one of his inpatient admissions to [facility]. He continues to deny current suicidal ideation, plan, and intent. Collateral: Rose, girlfriend, at bedside; reports patient is addicted to crack cocaine and wants help. She inquires why patient does not meet criteria for IVC based on the fact he has a mental illness and uses drugs. She states he wants to go somewhere detention for rehab. Patient was alert and oriented to self, person, place, time and situation. Mood was manic with congruent affect (rapid speech). He denies suicidal and homicidal ideation, plan, and intent. Patient did not appear to be responding to internal stimuli as evidenced by fair eye contact and answering questions appropriately when addressed. Thought processes are linear and organized. Intellectual abilities are estimated to be below average. Insight and judgment are fair as patient recognizes his addiction problem and wants to get help, but impulse control is poor as evidenced by continued crack cocaine use. Patient engages appropriately. He demonstrates future forward goal oriented thinking as he talks about wanting to get help and remain sober to help his relationships. Clinical Presentation: substance use and intoxication IVC Criteria per [place] GS 122C Dangerous to others Within the relevant past the individual No has inflicted or attempted to inflict or threatened to inflict serious bodily harm on another AND No that there is a reasonable probability that this conduct will be repeated. OR No has acted in such a way as to create a substantial risk of serious bodily harm to another AND No that there is a reasonable probability that this conduct will be repeated. OR No has engaged in extreme destruction of property AND NO that there is a reasonable probability that this conduct will be repeated. Previous episodes of dangerousness to others, when applicable, may be considered when determining reasonable probability of future dangerous conduct. Clear, cogent, and convincing evidence that an individual has committed a homicide in the relevant past is prima facie evidence of dangerousness to others. Dangerous to self Within the relevant past the individual has done any of the following: acted in such a way as to show ALL of the following: No The individual would be unable without care, supervision, and the continued assistance of others not otherwise available, to exercise self- control, judgment, and discretion in the conduct of the individual's daily responsibilities and social relations or to satisfy the individual's need for nourishment, personal or medical care, intermediate, or self-protection and safety. AND No There is a reasonable probability of the individual suffering serious physical debilitation within the near future unless adequate treatment is given. A showing of behavior that is grossly irrational, of actions that the individual is unable to control, of behavior that is grossly inappropriate to the situation, or of other evidence of severely impaired insight and judgment shall create a prima facie inference that the individual is unable to care for himself or herself. OR No has attempted suicide or threatened suicide AND No that there is a reasonable probability of suicide unless adequate treatment is given Patient denies SI, plan, and intent; wants assistance with substance use OR No has mutilated himself or herself or attempted to mutilate himself or herself AND No that there is a reasonable probability of serious self-mutilation unless adequate treatment is given. NOTE: Previous episodes of dangerousness to self, when applicable, may be considered when determining reasonable probability of physical debilitation, suicide, or self-mutilation. Impression\plan: Patient is cleared from psychiatric services. He came into the ED, intoxicated, stating he last used crack cocaine at 2009 last night. He reports history of addiction and substance use and is here to get help. He denies current suicidal and homicidal ideation, plan, and intent. He reports he has been to rehab in the past, but wants to go to a longer term rehab facility to get clean. He is recommended to continue to follow up with [facility] and continue outpatient medications. He is recommended to utilize community resource list and contact detox and substance use facilities in the area. [facility] highlighted for patient as they accept his insurance. Patient was also given information or Shalonda Rios who assists with substance use and mental health as he inquired for inpatient hospitalization. He was also recommended if symptoms worsen to call mobile crisis, call his provider, or return to the ED. Patients girlfriend agreed to be a part of discharge and was planning to pick u p patient from the ED. Dr. Jamison was consulted to care management of this patient; attending physicians in agreement with recommendations and disposition.
== END 2020-10-10 17:27 | disposition home or self-care (01) ==
LOC: ER 13:13
DX: F14.10 Cocaine abuse, uncomplicated (principal); F17.200 Nicotine dependence, unspecified, uncomplicated
CPT/HCPCS: 36415; 80053; 80307; 81001; 85025; 93005; 93010; 99284